=== PATIENT | male | born 1955 | race Caucasian/White ===

== ENCOUNTER 2016-07-03 13:31 | Emergency (ER) | payer OTHER, MEDICAID ==
--- NOTE | 2016-07-03 13:22 | EDPHY ---
H & P Constitutional: Initial Vital Signs Temperature (C) 37.1 C 07/03/16 13:31 Heart Rate 113 H 07/03/16 13:31 Respiratory Rate 16 07/03/16 13:31 Blood Pressure 140/91 H 07/03/16 13:31 O2 Sat (%) 93 07/03/16 13:31 O2 Delivery Mode Room Air Allergies/Adverse Reactions: No Known Allergies Allergy (Verified 07/03/16 13:44) Home Medications: Medication Instructions Recorded Unobtainable 0 mg PO DAILY 10/19/15 ARIPiprazole [Abilify 10 mg (*)] 10 mg PO DAILY #30 tab 11/21/15 ARIPiprazole [Abilify Maintena] 400 mg IM Q4 #1 suser.[email or web address] 11/21/15 Benztropine Mesylate [Cogentin] 1 mg PO BID #60 tab 11/21/15 Docusate Sodium [Colace 100 MG (*)] 100 mg PO BID #60 cap 11/21/15 Donepezil HCl [Aricept 5 MG (*)] 10 mg PO DAILY #30 tab 11/21/15 Lisinopril [Zestril 10 mg (*)] 10 mg PO DAILY #30 tab 11/21/15 Temazepam [Restoril 15 MG (*)] 15 mg PO HS PRN #30 cap 11/21/15 Trifluoperazine HCl [Stelazine 5MG 40 mg PO HS #60 tab 11/21/15 (*)] Medical Decision Making ED Course/Re-evaluation: CHIEF COMPLAINT: Psychiatric evaluation HISTORY OF PRESENT ILLNESS: A 61-year-old gentleman who is of unknown schizophrenic who is not making any sense whatsoever. He has been put on an M1 hold. He states that he was in the public bathroom helping wash dishes sees not making any sense and he is quite tangential. REVIEW OF SYSTEMS: A 10 point review of systems was performed and is negative with the exception of the elements mentioned in the history of present illness. Although should be taken with considerable skepticism as this patient is completely disorganized in his thoughts and speech PHYSICAL EXAM: General Appearance: Alert, well hydrated, appropriate, and non-toxic appearing. Head: Atraumatic without scalp tenderness or obvious injury Eyes: Pupils equal, round, reactive to light and accommodation, EOMI, no trauma , no injection. Ears: Clear bilaterally, no perforation, normal landmarks Nose: Atraumatic, no rhinorrhea, clear. Throat: There is no erythema or exudates, no lesions, normal tonsils, mucus membranes moist. Neck: Supple, 2+ carotid upstroke, nontender, no lymphadenopathy. Respiratory: No retractions, no distress, no wheezes, and no accessory muscle use. Lungs are clear to auscultation bilaterally. Cardiovascular: Regular rate and rhythm, no murmurs, rubs, or gallops. Bilateral carotid, radial, dorsalis pedis, and posterior tibial pulses intact. Good capillary refill all extremities. Gastrointestinal: Abdomen is soft, nontender, non-distended, no masses, no rebound, no guarding, no peritoneal signs. Musculoskeletal: Normal active ROM of all extremities, atraumatic. Neurological: Extra firm metal extremity movement a confusion is. Alert, appropriate, and interactive. The patient has normal DTRs and non-focal cranial nerves, motor, sensory, and cerebellar exam. Skin: No rashes, good turgor, no nodules on palpation. Past medical history: Schizophrenia Past surgical history: Patient will not answer Family history: The patient will not answer Social history: Patient will not answer DIFFERENTIAL DIAGNOSIS: The differential diagnosis for the patient's depression included but was not limited to functional and major depression, situational depression, medication side effect, drugs, and alcohol abuse. MEDICAL DECISION MAKING: Patient is in no acute distress and is hemodynamically stable. We are awaiting psychiatric team's evaluation. Patient has known history of psychiatric disorders and is here for evaluation. (Hamzah Guevara) 2242: patient signed over to me at 7:00 p.m. shift change. Patient has schizophrenia. Resting comfortably no acute distress. Pending placement. On M1 hold. 10 gentle. Patient signed over at 11:00 p.m. shift change to Dr. Alireza Coleman. (Demond Herrera) 2310 patient signed out to me from Dr. Herrera. Patient is schizophrenic with acute psychosis. He has been evaluated by mental health pharmacy data analyst and is awaiting placement. Patient has been placed on M1 hold. 0700 patient signed out to Dr. Austin pending placement. No issues of my care this patient overnight. (Alex Coleman) 0700: Patient signed out to me by Dr. Coleman at shift change. Mental health is looking for placement. I interviewed and examined this patient at 7:20 a.m.. At that time he was requesting a meal. He is mildly tachypneic and tells me that this is because he is hungry. His lungs are clear to auscultation. Heart has a regular rate and rhythm. He is walking about in the room. He is not agitated. His prescribed morning medications are being given to him. Awaiting placement. 1325: Patient has been accepted to [facility] under Lexy Luna NP. EMTALA completed. (Isha Austin) - Data Points Laboratory Results: Laboratory Results 07/03/16 14:15 07/03/16 14:15 Medications Given: Discontinued Medications Aripiprazole (Abilify) 10 mg PO DAILY [place] Stop: 12/31/16 08:59 Last Admin: 07/04/16 09:06 Dose: Not Given Benztropine Mesylate (Cogentin) 1 mg PO EDNOW ONE Stop: 07/03/16 19:32 Last Admin: 07/03/16 20:21 Dose: 1 mg Benztropine Mesylate (Cogentin) 1 mg PO EDNOW ONE Stop: 07/04/16 07:17 Last Admin: 07/04/16 09:02 Dose: 1 mg Donepezil HCl (Aricept) 5 mg PO HS [place] Stop: 12/30/16 20:59 Last Admin: 07/03/16 20:21 Dose: 5 mg Lisinopril (Zestril) 20 mg PO EDNOW ONE Stop: 07/04/16 07:17 Last Admin: 07/04/16 09:05 Dose: 20 mg Nicotine (Nicoderm Cq) 21 mg TD EDNOW ONE Stop: 07/03/16 17:26 Last Admin: 07/03/16 18:16 Dose: 21 mg Trifluoperazine HCl (Stelazine) 20 mg PO EDNOW ONE Stop: 07/03/16 19:28 Last Admin: 07/03/16 20:21 Dose: 20 mg Departure - Departure Disposition: Other Psych, Not [place] Clinical Impression: Schizophrenia, acute undifferentiated, Acute psychosis Condition: Fair Referrals: Patient,NotPresent [Unknown] - As per Instructions
[2016-07-03 14:30] LABS: % IMMATURE GRANULYOCYTES 0.2 % (0.0-1.1); ABSOLUTE IMMATURE GRANULOCYTES 0.02 10^3/uL (0.00-0.10); ADD DIFF? NO; ADD MORPH? NO; ADD SCAN? NO; ATYPICAL LYMPHOCYTE FLAG 10 (0-99); FRAGMENT RBC FLAG 0 (0-99); HEMATOCRIT 46.4 % (40.0-51.0); HEMOGLOBIN 15.7 g/dL (13.7-17.5); LEFT SHIFT FLG 0 (0-99); LIPEMIA HEMOLYSIS FLAG 90 (0-99); MEAN CELL HEMOGLOBIN 32.5 pg (27.9-34.1); MEAN CELL HEMOGLOBIN CONCENTR. 33.8 g/dL (32.4-36.7); MEAN CELL VOLUME 96.1 fL (81.5-99.8); MEAN PLATELET VOLUME 9.3 fL (8.7-11.7); PLATELET CLUMPS FLAG 0 (0-99); PLATELET COUNT 327 10^3/uL (150-400); RED BLOOD CELL COUNT 4.83 10^6/uL (4.40-6.38); RED CELL DISTRIBUTION WIDTH 11.9 % (11.5-15.2)
[2016-07-03 14:44] LABS: ANION GAP 12 mEq/L (8-16); CALCIUM 9.6 mg/dL (8.5-10.4); CARBON DIOXIDE 30 mEq/l (22-31); CHLORIDE 98 mEq/L (97-110); CREATININE 0.9 mg/dL (0.7-1.3); ETHANOL SERUM < 10 mg/dL (0-10); GLOMERULAR FILTRATION RATE > 60; GLUCOSE 90 mg/dL (70-100); POTASSIUM 4.2 mEq/L (3.5-5.2); SALICYLATE < 1.0 mg/dL (2.0-20.0); SODIUM 140 mEq/L (134-144)
[2016-07-03] MEDS ORDERED: NICOTINE 21 MG/24 HR PATCH TD ONE (17:25)
[2016-07-03] MEDS ORDERED: TRIFLUOPERAZINE HCL 5 MG TAB PO ONE (19:27)
[2016-07-03] MEDS ORDERED: BENZTROPINE MESYLATE 1 MG TAB PO ONE (19:31)
[2016-07-03] MEDS ORDERED: DONEPEZIL HCL 5 MG TAB PO SCH (21:00)
[2016-07-03 22:40] VITALS: RESP 16
[2016-07-04] MEDS ORDERED: BENZTROPINE MESYLATE 1 MG TAB PO ONE (07:16)
[2016-07-04] MEDS ORDERED: LISINOPRIL 20 MG TAB PO ONE (07:16)
[2016-07-04] MEDS ORDERED: ARIPiprazole 10 MG TAB PO SCH (09:00)
[2016-07-04 09:05] VITALS: PULSE 83; O2SAT 96
[2016-07-04 15:35] VITALS: BP 150/70; TEMP 97.7
== END 2016-07-04 15:30 ==
LOC: EDUNIT#
DX: F23 Brief psychotic disorder (principal)
CPT/HCPCS: 80305; G0480

== ENCOUNTER 2016-09-23 15:40 | Emergency (ER) | payer OTHER, MEDICAID ==
--- NOTE | 2016-09-23 15:55 | EDPHY ---
H & P Smoking Status: Current every day smoker Time Seen by Provider: 09/23/16 15:49 HPI/ROS: CHIEF COMPLAINT: "I've been poisoned" HISTORY OF PRESENT ILLNESS: The patient is a 61-year-old male with history of dementia and schizophrenia, brought in from [facility] with complaints of being poisoned. According to staff at [facility] the patient has not been compliant with his medications since August 20, 2016. Since refusal the patient has been hallucinating, he stay up all night talking to himself. When asked how the patient is feeling in the ED he states "the gravity doesn't work and I have been poisoned." Further history is unobtainable due to patient's schizophrenia and dementia. REVIEW OF SYSTEMS: ROS is limited due to patient's history of schizophrenia and dementia. (Manjula Claudio) Past Medical/Surgical History: Schizophrenia, Dementia (Manjula Claudio) Social History: Resides at [facility] (Manjula Claudio) Physical Exam: General Appearance: Alert, follows commands Eyes: Pupils equal and round, no conjunctival pallor or injection ENT, Mouth: Mucous membranes moist Neck: Normal inspection Respiratory: Lungs are clear to auscultation Cardiovascular: Regular rate and rhythm Gastrointestinal: Abdomen is soft and non-tender Neurological: A&O, nonfocal exam Skin: Warm and dry Extremities: Nontender, no pedal edema Psychiatric: Paranoid, flat affect (Manjula Claudio) Constitutional: Initial Vital Signs Temperature (C) 36.7 C 09/23/16 15:44 Heart Rate 95 09/23/16 15:44 Respiratory Rate 28 H 09/23/16 15:44 Blood Pressure 141/99 H 09/23/16 15:44 O2 Sat (%) 97 09/23/16 15:44 O2 Delivery Mode Room Air Allergies/Adverse Reactions: No Known Allergies Allergy (Verified 07/03/16 13:44) Home Medications: Medication Instructions Recorded Unobtainable 0 mg PO DAILY 10/19/15 Benztropine Mesylate [Cogentin] 1 mg PO BID #60 tab 11/21/15 Lisinopril [Zestril 10 mg (*)] 10 mg PO DAILY #30 tab 11/21/15 Trifluoperazine HCl [Stelazine 5MG 40 mg PO HS #60 tab 11/21/15 (*)] Acetaminophen [Tylenol 325mg (*)] 325 mg PO DAILY PRN 09/24/16 Divalproex [Depakote 125 MG (RX)] 125 mg PO 09/24/16 Medical Decision Making - Diagnostics Imaging: I viewed and interpreted images myself - Diagnostics Imaging Results: CXR: NAD (Manjula Claudio) ED Course/Re-evaluation: 0646AM: No acute events overnight. Patient sleeping. Patient here with dimensions schizophrenia. On M1 hold. Off medications. Paranoid and hallucinating. (Demond Herrera) Patient with history of dementia and schizophrenia, noncompliant with medications, presents with paranoia and hallucinations. Patient believes he has been poisoned. Plan to check lab work and urinalysis. Seroquel 200 mg orally given. Chest x-ray ordered. Behavioral Health received a phone call from the SPUDDER at [facility] who would like the patient to have a psych evaluation. Lab work is completely normal. Urinalysis and toxicology are negative. Patient is medically cleared and awaiting mental health evaluation. Patient was signed out to Dr. Phelps at the end of my shift. Patient is awaiting mental health evaluation and further placement. (Manjula Claudio) - Data Points Laboratory Results: Laboratory Results 09/23/16 16:10 09/23/16 16:10 Medications Given: Discontinued Medications Nicotine (Nicoderm Cq) 21 mg TD EDNOW ONE Stop: 09/23/16 18:54 Last Admin: 09/23/16 19:30 Dose: 21 mg Nicotine (Nicoderm Cq) 21 mg TD EDNOW ONE Stop: 09/24/16 08:52 Last Admin: 09/24/16 09:06 Dose: 21 mg Olanzapine (Olanzapine) 10 mg PO ONCE ONE Stop: 09/23/16 23:27 Last Admin: 09/23/16 23:36 Dose: 10 mg Quetiapine Fumarate (Seroquel) 200 mg PO EDNOW ONE Stop: 09/23/16 16:04 Last Admin: 09/23/16 16:30 Dose: 200 mg Departure - Departure Disposition: Other Psych, Not [place] Clinical Impression: Schizophrenia, Acute psychosis Condition: Good Referrals: Patient,NotPresent [Unknown] - As per Instructions Report Scribed for: Manjula Claudio Report Scribed by: Renae Fernandes Date of Report: 09/23/16 Time of Report: 15:53 Physician Review and Approval Statement: 09/23/16 15:53 Portions of this note were transcribed by a medical orderly. I personally performed the history, physical exam, and medical decision-making; and confirmed the accuracy of the information in the transcribed note. (Manjula Claudio)
[2016-09-23] MEDS ORDERED: QUEtiapine FUMARATE 25 MG TAB PO ONE (16:03)
[2016-09-23] MEDS ORDERED: QUEtiapine FUMARATE 200 MG TAB ONE (16:20)
[2016-09-23 16:23] LABS: % IMMATURE GRANULYOCYTES 0.4 % (0.0-1.1); ABSOLUTE IMMATURE GRANULOCYTES 0.04 10^3/uL (0.00-0.10); ADD DIFF? NO; ADD MORPH? NO; ADD SCAN? NO; ATYPICAL LYMPHOCYTE FLAG 30 (0-99); FRAGMENT RBC FLAG 0 (0-99); HEMATOCRIT 42.6 % (40.0-51.0); HEMOGLOBIN 14.6 g/dL (13.7-17.5); LEFT SHIFT FLG 0 (0-99); LIPEMIA HEMOLYSIS FLAG 90 (0-99); MEAN CELL HEMOGLOBIN 33.2 pg (27.9-34.1); MEAN CELL HEMOGLOBIN CONCENTR. 34.3 g/dL (32.4-36.7); MEAN CELL VOLUME 96.8 fL (81.5-99.8); MEAN PLATELET VOLUME 9.1 fL (8.7-11.7); PLATELET CLUMPS FLAG 0 (0-99); PLATELET COUNT 335 10^3/uL (150-400); RED CELL DISTRIBUTION WIDTH 12.1 % (11.5-15.2)
[2016-09-23 16:41] LABS: ANION GAP 12 mEq/L (8-16); CALCIUM 9.3 mg/dL (8.5-10.4); CARBON DIOXIDE 25 mEq/l (22-31); CHLORIDE 103 mEq/L (97-110); CREATININE 0.8 mg/dL (0.7-1.3); ETHANOL SERUM < 10 mg/dL (0-10); GLOMERULAR FILTRATION RATE > 60; GLUCOSE 100 mg/dL (70-100); SODIUM 140 mEq/L (134-144)
[2016-09-23 17:39] LABS: COLOR PALE YELLOW; LEUKOCYTE ESTERASE,URINE NEGATIVE (NEGATIVE); NITRITE,URINE NEGATIVE (NEGATIVE)
[2016-09-23 18:05] LABS: RBC,URINE NONE SEEN /hpf (0-3)
[2016-09-23] MEDS ORDERED: NICOTINE 21 MG/24 HR PATCH TD ONE (18:53)
[2016-09-23] MEDS ORDERED: OLANZapine 10 MG TAB PO ONE (23:26)
[2016-09-23] MEDS ORDERED: OLANZapine DISINTEGR 10 MG TAB ONE (23:28)
[2016-09-24] MEDS ORDERED: NICOTINE 21 MG/24 HR PATCH TD ONE (08:51)
--- NOTE | 2016-09-24 09:11 | CPEKG ---
Heart Rate: 91 RR Interval: 659 P-R Interval: 140 QRSD Interval: 78 QT Interval: 364 QTC Interval: 448 P Badger: 70 QRS Badger: 17 T Wave Badger: 56 EKG Severity - NORMAL ECG - EKG Impression: SINUS RHYTHM Electronically Signed By: Jatin Heard 25-Sep-2016 13:59:34
[2016-09-24 09:23] VITALS: RESP 16; TEMP 98.2
[2016-09-24 09:36] VITALS: BP 119/78; PULSE 91; O2SAT 95
== END 2016-09-24 10:38 ==
LOC: EDUNIT#
DX: F20.9 Schizophrenia, unspecified (principal); F17.200 Nicotine dependence, unspecified, uncomplicated
CPT/HCPCS: 80305; G0480

== ENCOUNTER 2016-11-02 12:43 | Inpatient (IN) | payer OTHER, MEDICAID ==
--- NOTE | 2016-11-02 15:01 | EDPHY ---
H & P Stated Complaint: psych - Personal History Current Tetanus Diphtheria and Acellular Pertussis (TDAP): Unsure - Medical/Surgical History Hx Asthma: No Hx Chronic Respiratory Disease: No Hx Diabetes: No Hx Cardiac Disease: No Hx Renal Disease: No Hx Cirrhosis: No Hx Alcoholism: No Hx HIV/AIDS: No Hx Splenectomy or Spleen Trauma: No Other PMH: TB schizoaffective disorder,Gallbladder removed, Ankle surgery. Pt reports gallbladder has not been removed, dementia, low vision, hearing loss, HTN, TBI - Social History Smoking Status: Current every day smoker Time Seen by Provider: 11/02/16 13:58 Constitutional: Initial Vital Signs Temperature (C) 37 C 11/02/16 13:22 Heart Rate 100 11/02/16 13:22 Respiratory Rate 16 11/02/16 13:22 Blood Pressure 143/98 H 11/02/16 13:22 O2 Sat (%) 96 11/02/16 13:22 O2 Delivery Mode Room Air O2 (L/minute) 94 Allergies/Adverse Reactions: No Known Allergies Allergy (Verified 07/03/16 13:44) Home Medications: Medication Instructions Recorded Lisinopril [Zestril 10 mg (*)] 10 mg PO DAILY #30 tab 11/21/15 Acetaminophen [Tylenol 325mg (*)] 650 mg PO Q4HRS PRN 11/05/16 Carbamide Peroxide [Debrox Ear 5 drop LEFTEAR BID 11/05/16 drops (*)] Herbals/Supplements -Info Only 1 each PO DAILY 11/05/16 LORazepam [Ativan (*)] 0.5 mg PO Q8HRS 11/05/16 Melatonin [Melatonin 3 MG (*)] 3 mg PO HS PRN 11/05/16 Medical Decision Making ED Course/Re-evaluation: CHIEF COMPLAINT: Psychiatric evaluation HISTORY OF PRESENT ILLNESS: This patient is a 61 year old male with history of dementia and schizophrenia brought in from [facility] for medication noncompliance. He has been evaluated before in this emergency department for similar issues. [facility] is requesting alternate placement for this patient as his medication is court- ordered but they are unable to force medication compliance. On evaluation today , the patient states he is "doing fine", and requests a nicotine patch as he is becoming faint. Further history is unobtainable due to patient's schizophrenia and dementia. REVIEW OF SYSTEMS: Limited due to patient's history of schizophrenia and dementia. PHYSICAL EXAM: General Appearance: Alert, well hydrated, appropriate, and non-toxic appearing. Head: Atraumatic without scalp tenderness or obvious injury Eyes: Pupils equal, round, reactive to light and accommodation, EOMI, no trauma , no injection. Ears: Clear bilaterally, no perforation, normal landmarks Nose: Atraumatic, no rhinorrhea, clear. Throat: There is no erythema or exudates, no lesions, normal tonsils, mucus membranes moist. Neck: Supple, nontender, no lymphadenopathy. Respiratory: No retractions, no distress, no wheezes, and no accessory muscle use. Lungs are clear to auscultation bilaterally. Cardiovascular: Regular rate and rhythm. Good capillary refill all extremities. Gastrointestinal: Abdomen is soft, nontender. Musculoskeletal: Normal active ROM of all extremities, atraumatic. Neurological: Alert, appropriate, and interactive. Nonfocal neuro exam. Skin: No rashes, good turgor, no nodules on palpation. Past medical history: Schizoaffective disorder, dementia, hearing loss, hypertension Past surgical history: Noncontributory Family history: Noncontributory Social history: Lives at [facility]. DIFFERENTIAL DIAGNOSIS: The differential diagnosis for the patient's depression included but was not limited to functional and major depression, situational depression, medication side effect, drugs, and alcohol abuse. MEDICAL DECISION MAKING: Patient is in no acute distress and is hemodynamically stable. We are awaiting psychiatric team's evaluation. Patient has known history of psychiatric disorders and is here for evaluation. (Hamzah Guevara) I took over care of this patient at 11:00 p.m.. The patient is on an M1 hold for schizoaffective disorder. He is to be admitted. Destination for admission pending at this time. 1:20 a.m., the patient is showing some escalating agitation with psychotic features. He will be given 10 mg of oral Zyprexa. He continues to await placement for psychiatric admission. 7 a.m., the patient's remaining emergency department course under my care has been uneventful. Patient still awaits psychiatric admission. Care turned over to Dr. Jorge Luis Phelps at this time. (Tabby Jarquin) 1500: The patient is admitted change of shift. The patient is awaiting placement. No new complaints. (Jorge Luis Phelps) 1500: The patient is signed out at change of shift by Dr. Phelps. I went personally evaluated the patient. He was waiting comfortably in his room. I rechecked the patient on numerous occasions while here. He intermittently became mildly agitated was easily calmed with answering his questions. 2300: The patient is signed out at change of shift to Dr. Coleman. (Tracy Celestin) Re-evaluation by me at 7:25 a.m.. Patient is stable. He asked for a glass of water. He is awaiting placement (Walker Qiu) 191: Patient has been accepted at [address] [place] [address]. Inpatient psychiatric hospitalization by Dr. Ramirez. EMTALA FILLED OUT. (Demond Herrera) Critical Care Time: 3:30 p.m. care transferred to Dr. Tracy Celestin, pending placement. (Jorge Luis Phelps) Other Provider: Patient signed out to me at 7am by Dr Coleman. The patient remained stable over the course of my shift, not requiring intervention. I spoke with Orlin from Mental Health multiple times and they are aware that the patient's M1 hold will this evening. Dr. Joseph from psychiatry is apparently coming to the ED to re-evaluate the patient. Patient signed out to Dr. Herrera pending mental health dispo. (Aiden Hernandez) Care Turn Over: 2300 care assumed by me from Dr. Celestin pending placement 0700 patient signed out to Dr. Qiu pending placement. No issues during my care overnight. 2200 11/04/16 care assumed by me from Dr. Phelps pending placement. 0700 patient signed out to Dr. Hernandez pending placement. No issues during my care overnight. (Alex Coleman) - Data Points Laboratory Results: Laboratory Results 11/02/16 15:05 11/02/16 15:05 Medications Given: Discontinued Medications Acetaminophen (Tylenol) 650 mg PO EDNOW ONE Stop: 11/02/16 20:13 Last Admin: 11/02/16 20:13 Dose: 650 mg Haloperidol (Haldol) 5 mg PO EDNOW ONE Stop: 11/04/16 22:52 Last Admin: 11/04/16 23:11 Dose: 5 mg Nicotine (Nicoderm Cq) 21 mg TD EDNOW ONE Stop: 11/02/16 22:04 Last Admin: 11/02/16 22:09 Dose: 21 mg Nicotine (Nicoderm Cq) 21 mg TD EDNOW ONE Stop: 11/03/16 23:04 Last Admin: 11/03/16 23:26 Dose: 21 mg Nicotine (Nicoderm Cq) 21 mg TD EDNOW ONE Stop: 11/04/16 23:01 Last Admin: 11/04/16 22:42 Dose: 21 mg Nicotine (Nicoderm Cq) 21 mg TD EDNOW ONE Stop: 11/05/16 17:48 Last Admin: 11/05/16 17:48 Dose: 21 mg Olanzapine (Zyprexa Zydis) 10 mg PO EDNOW ONE Stop: 11/03/16 01:21 Last Admin: 11/03/16 02:36 Dose: Not Given Olanzapine (Zyprexa Im Injection) 10 mg IM EDNOW ONE Stop: 11/03/16 01:40 Last Admin: 11/03/16 01:40 Dose: 10 mg Olanzapine (Zyprexa Zydis) 10 mg PO EDNOW ONE Stop: 11/04/16 22:33 Last Admin: 11/04/16 22:45 Dose: Not Given Departure - Departure Disposition: [facility] Clinical Impression: Schizoaffective disorder Qualifiers: Schizoaffective disorder type: bipolar Qualified Code(s): F25.0 - Schizoaffective disorder, bipolar type Condition: Good Referrals: SHEELA DYE [Primary Care Provider] - As per Instructions Report Scribed for: Hamzah Guevara Report Scribed by: pOal Todd Date of Report: 11/02/16 Time of Report: 17:03
[2016-11-02 15:12] LABS: % IMMATURE GRANULYOCYTES 0.3 % (0.0-1.1); ABSOLUTE IMMATURE GRANULOCYTES 0.03 10^3/uL (0.00-0.10); ADD DIFF? NO; ADD MORPH? NO; ADD SCAN? NO; ATYPICAL LYMPHOCYTE FLAG 0 (0-99); FRAGMENT RBC FLAG 0 (0-99); HEMATOCRIT 44.6 % (40.0-51.0); HEMOGLOBIN 15.3 g/dL (13.7-17.5); LEFT SHIFT FLG 0 (0-99); LIPEMIA HEMOLYSIS FLAG 90 (0-99); MEAN CELL HEMOGLOBIN 32.6 pg (27.9-34.1); MEAN CELL HEMOGLOBIN CONCENTR. 34.3 g/dL (32.4-36.7); MEAN CELL VOLUME 94.9 fL (81.5-99.8); MEAN PLATELET VOLUME 9.2 fL (8.7-11.7); PLATELET CLUMPS FLAG 0 (0-99); PLATELET COUNT 338 10^3/uL (150-400); RED CELL DISTRIBUTION WIDTH 11.8 % (11.5-15.2)
[2016-11-02 15:35] LABS: ANION GAP 13 mEq/L (8-16); CALCIUM 9.5 mg/dL (8.5-10.4); CARBON DIOXIDE 26 mEq/l (22-31); CHLORIDE 101 mEq/L (97-110); CREATININE 0.8 mg/dL (0.7-1.3); ETHANOL SERUM < 10 mg/dL (0-10); GLOMERULAR FILTRATION RATE > 60; GLUCOSE 84 mg/dL (70-100); POTASSIUM 3.9 mEq/L (3.5-5.2); SALICYLATE < 1.0 mg/dL (2.0-20.0); SODIUM 140 mEq/L (134-144)
[2016-11-02] MEDS ORDERED: ACETAMINOPHEN 325 MG TAB ONE (20:11)
[2016-11-02] MEDS ORDERED: ACETAMINOPHEN 325 MG TAB PO ONE (20:12)
[2016-11-02] MEDS ORDERED: NICOTINE 21 MG/24 HR PATCH TD ONE (22:03)
[2016-11-03] MEDS ORDERED: OLANZapine DISINTEGR 10 MG TAB PO ONE (01:20)
[2016-11-03] MEDS ORDERED: OLANZapine 10 MG/2 ML VIAL IM ONE ×2 (01:34→01:39)
--- NOTE | 2016-11-03 06:55 | CPEKG ---
Heart Rate: 68 RR Interval: 882 P-R Interval: 132 QRSD Interval: 80 QT Interval: 404 QTC Interval: 430 P Mauk: 62 QRS [place]k: 23 T Wave [place]: 54 EKG Severity - NORMAL ECG - EKG Impression: SINUS RHYTHM Electronically Signed By: Jorge Luis Phelps 03-Nov-2016 07:06:33
[2016-11-03] MEDS ORDERED: NICOTINE 21 MG/24 HR PATCH TD ONE (23:03)
[2016-11-04] MEDS ORDERED: OLANZapine DISINTEGR 10 MG TAB PO ONE (22:32)
[2016-11-04] MEDS ORDERED: HALOPERIDOL 5 MG TAB PO ONE (22:51)
[2016-11-04] MEDS ORDERED: NICOTINE 21 MG/24 HR PATCH TD ONE (23:00)
[2016-11-05] MEDS ORDERED: NICOTINE 21 MG/24 HR PATCH TD ONE ×2 (17:46→17:47)
[2016-11-05] MEDS ORDERED: MAGNESIUM HYDROXIDE 30 ML UDCUP PO PRN (22:46)
[2016-11-05] MEDS ORDERED: LORazepam 0.5 MG TAB PO PRN (22:46)
[2016-11-05] MEDS ORDERED: MAG HYDROX/AL HYDROX/SIMETH 30 ML UDCUP PO PRN (22:46)
[2016-11-05] MEDS ORDERED: OLANZapine 5 MG TAB PO PRN (22:48)
[2016-11-05] MEDS: DOCUSATE SODIUM 100 MG CAP PO SCH (22:58)
--- NOTE | 2016-11-06 07:18 | PDGENHP ---
History and Physical - Chief Complaint schizoaffective, not taking meds - History of Present Illness Pt transferred to ED from [facility] due to refusal of meds. He has been behaviorally controlled here. Seems to be at baseline. Denies hallucinations currently. He denies patel, vision changes, chest pain, SOB, abdominal symptoms or changes in bowel or bladder habits. He c/o ear wax, asks for drops. No other complaints. He is comfortable. History Information - Allergies/Home Medication List Allergies/Adverse Reactions: No Known Allergies Allergy (Verified 07/03/16 13:44) Home Medications: Acetaminophen [Tylenol 325mg (*)] 650 mg PO Q4HRS PRN 11/05/16 [Last Taken Unknown] Carbamide Peroxide [Debrox Ear drops (*)] 5 drop LEFTEAR BID 11/05/16 [Last Taken Unknown] Herbals/Supplements -Info Only 1 each PO DAILY 11/05/16 [Last Taken Unknown] LORazepam [Ativan (*)] 0.5 mg PO Q8HRS 11/05/16 [Last Taken Unknown] Melatonin [Melatonin 3 MG (*)] 3 mg PO HS PRN 11/05/16 [Last Taken Unknown] I have personally reviewed and updated: family history, medical history, social history, surgical history - Past Medical History hypertension Additional medical history: TBI, htn, hearing loss, dementia, tobacco abuse - Family History Positive for: non-pertinent - Social History Smoking Status: Current every day smoker Alcohol Use: None Drug Use: None Additional social history: Lives at [facility] Review of Systems ROS: 10pt was reviewed & negative except for what was stated in HPI & below Physical Exam Temp Pulse Resp BP Pulse Ox 36.6 C 84 14 141/91 H 95 11/06/16 06:00 11/06/16 06:00 11/06/16 06:00 11/06/16 06:00 11/06/16 06:00 Constitutional: no apparent distress Eyes: PERRL Ears, Nose, Mouth, Throat: moist mucous membranes Cardiovascular: regular rate and rhythym Respiratory: no respiratory distress, clear to auscultation Gastrointestinal: normoactive bowel sounds, soft, non-tender abdomen Skin: warm Musculoskeletal: full muscle strength Neurologic: AAOx3 Psychiatric: interacting appropriately Lab Data & Imaging Review 11/02/16 15:05 11/02/16 15:05 WBC 9.55 10^3/uL (3.80-9.50) H 11/02/16 15:05 RBC 4.70 10^6/uL (4.40-6.38) 11/02/16 15:05 Hgb 15.3 g/dL (13.7-17.5) 11/02/16 15:05 Hct 44.6 % (40.0-51.0) 11/02/16 15:05 MCV 94.9 fL (81.5-99.8) 11/02/16 15:05 MCH 32.6 pg (27.9-34.1) 11/02/16 15:05 MCHC 34.3 g/dL (32.4-36.7) 11/02/16 15:05 RDW 11.8 % (11.5-15.2) 11/02/16 15:05 Plt Count 338 10^3/uL (150-400) 11/02/16 15:05 MPV 9.2 fL (8.7-11.7) 11/02/16 15:05 Neut % (Auto) 65.2 % (39.3-74.2) 11/02/16 15:05 Lymph % (Auto) 23.0 % (15.0-45.0) 11/02/16 15:05 [place] % (Auto) 8.8 % (4.5-13.0) 11/02/16 15:05 Eos % (Auto) 1.9 % (0.6-7.6) 11/02/16 15:05 Baso % (Auto) 0.8 % (0.3-1.7) 11/02/16 15:05 Nucleat RBC Rel Count 0.0 % (0.0-0.2) 11/02/16 15:05 Absolute Neuts (auto) 6.22 10^3/uL (1.70-6.50) 11/02/16 15:05 Absolute Lymphs (auto) 2.20 10^3/uL (1.00-3.00) 11/02/16 15:05 Absolute Monos (auto) 0.84 10^3/uL (0.30-0.80) H 11/02/16 15:05 Absolute Eos (auto) 0.18 10^3/uL (0.03-0.40) 11/02/16 15:05 Absolute Basos (auto) 0.08 10^3/uL (0.02-0.10) 11/02/16 15:05 Absolute Nucleated RBC 0.00 10^3/uL (0-0.01) 11/02/16 15:05 Immature Gran % 0.3 % (0.0-1.1) 11/02/16 15:05 Immature Gran # 0.03 10^3/uL (0.00-0.10) 11/02/16 15:05 Sodium 140 mEq/L (134-144) 11/02/16 15:05 Potassium 3.9 mEq/L (3.5-5.2) 11/02/16 15:05 Chloride 101 mEq/L (97-110) 11/02/16 15:05 Carbon Dioxide 26 mEq/l (22-31) 11/02/16 15:05 Anion Gap 13 mEq/L (8-16) 11/02/16 15:05 BUN 11 mg/dL (7-23) 11/02/16 15:05 Creatinine 0.8 mg/dL (0.7-1.3) 11/02/16 15:05 Estimated GFR > 60 11/02/16 15:05 Glucose 84 mg/dL (70-100) 11/02/16 15:05 Calcium 9.5 mg/dL (8.5-10.4) 11/02/16 15:05 Salicylates < 1.0 mg/dL (2.0-20.0) L 11/02/16 15:05 Urine Opiates Screen NEGATIVE (NEGATIVE) 11/02/16 16:41 Acetaminophen < 10 mcg/mL (10-30) L 11/02/16 15:05 Urine Barbiturates NEGATIVE (NEGATIVE) 11/02/16 16:41 Ur Phencyclidine Scrn NEGATIVE (NEGATIVE) 11/02/16 16:41 Ur Amphetamine Screen NEGATIVE (NEGATIVE) 11/02/16 16:41 U Benzodiazepines Scrn NEGATIVE (NEGATIVE) 11/02/16 16:41 Urine Cocaine Screen NEGATIVE (NEGATIVE) 11/02/16 16:41 U Marijuana (THC) Screen NEGATIVE (NEGATIVE) 11/02/16 16:41 Ethyl Alcohol < 10 mg/dL (0-10) 11/02/16 15:05 Assessment & Plan Assessment: Schizoaffective disorder (Acute) - Pt admitted from [facility] due to difficulty with medication adherence. He is behaviorally controlled. -prn Zyprexa -further management per [facility] team Hypertension - BP 140/90 this am. -consider [id number] of lisinopril if persists elevated Dementia - stable Hearing loss - pt c/o ear wax which may cause worse symptoms -prn debrox Tobacco abuse - cont nicoderm TBI Full code Dispo - inpt behavioral health
[2016-11-06] MEDS: LISINOPRIL 10 MG TAB PO SCH (08:19)
[2016-11-06] MEDS: NICOTINE 21 MG/24 HR PATCH TD SCH (08:21)
[2016-11-06] MEDS: DOCUSATE SODIUM 100 MG CAP PO SCH ×2 (08:26→21:40)
--- NOTE | 2016-11-06 16:46 | BAPA ---
[f rep st] ADMISSION PSYCHIATRIC ASSESSMENT DATE OF SERVICE: 11/06/2016 CHIEF COMPLAINT: "They promised me I would have privacy, I am not going to talk to you." HISTORY OF PRESENT ILLNESS: The patient is a 61-year-old male with a history of chronic p aranoid schizophrenia. He also has a history of dementia. He has had numerous hospitalizations at our facility, all precipitated by medication noncompliance and psychotic decompensation. He has mos t recently been living at [facility] and had, by their report, not taken his prescribed medicatio ns for over a month. He has become more paranoid, irritable, and hostile, and had begun displaying some disorganized behaviors and was not following the facility rules, including smoking inside. He was eventually referred to the ED for evaluation, placed on an M1 hold due to grave disability, and admitted for further evaluation. The patient was last here from 10/18 to 11/21/2015. At that time, he was again noncompliant with his medicines though eventually did take them and was able to transf er to [facility]. He was sent to the ER on 07/03 and 09/23/2016 from [facility], both times d ue to increasing delusions and noncompliance with medications. Both times, he was returned to [facility]. Today, patient refuses to speak with me. He is quite hostile and paranoid, states that he was told he did not have to talk to the doctor. I know him fairly well from previous admissions and told him I was available to answer any questions or if he needed anything and he told me to go away in a ad y hostile manner. PAST PSYCHIATRIC HISTORY: The patient has a greater than 30-year history of schizophrenia. 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 He had a history of medication noncompliance and recurrence of his psychosis and this seemed to accumulate f or him to the point that his overall functioning had deteriorated and he could no longer keep his lexie b. He was placed in [facility] about a year ago. He sees doctors at [facility]. ALLERGIES: No known medical allergies. CURRENT MEDICATIONS: Lisinopril 10 mg daily, melatonin 3 mg at bedtime. It is unclear what the misty venegas's last psychotropic medicines were. He was discharged from this facility in November 2015 on Abilify 10 mg, Cogentin 1 mg twice daily, Aricept 10 mg daily, temazepam 15 mg at bedtime, and Fidelina zine 40 mg at bedtime. 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 SOCIAL HISTORY: Patient is unmarried, has no dependents or children. He has 1 brother who lives in [place]. He receives social security disability income. He previously worked at the [employer]. He has very few local supports. The patient has no significant substance abuse history. ADMISSION LABORATORY DATA: CBC is normal. Serum chemistries are normal. Urine drug screen is nega tive for all substances. MENTAL STATUS EXAMINATION: Reveals a disheveled, malodorous male. He is hostile and verb ally threatening to me when I approach him. His affect is otherwise irritable and intense. He disp lays a seemingly disorganized thought process. He is, however, able to express himself to the exten t that he does not want to talk to me. His thought content reveals likely paranoia. He will not an swer questions in regard to other aspects of his thought content, including perceptual disturbances. It is unclear what his orientation is as he is uncooperative with that as well. There does not ap pear to be any delirium. The patient does not answer questions in regard to suicide, homicide, or v iolent ideations. IMPRESSION: Schizophrenia, paranoid type, chronic with acute exacerbation. Medication noncomplianc e. Chronic illness. Recurrent illness. Lack of natural supports. The patient is a 61-year-old male, well-known to us from previous treatments. He is curre ntly quite psychotic, irritable, hostile, and paranoid, which is typical of him when he is decompens ated. When he is taking his medicines, he is very pleasant and cooperative and I do not know of him as having ever been a risk for aggression. PLAN: 1. Admit to the [facility] unit on either an M1 hold or a continuation or t ransfer of his certification. It is unclear to me whether he is on a certification at this time. T LC report references a certification with court order of medications, though he was also recently ho spitalized at [facility] where it was said that they did not have a certification. Will attempt t o clarify this with [facility]. 2. Will restart medications as we know them with at least the Abilify for now and attempt to obtain a current medication regimen from [facility]. 3. Will engage patient in individual, group, and milieu psychotherapies and attempt to establish a therapeutic alliance with him and in the meantime provide at least assault awareness. ESTIMATED LENGTH OF STAY: 10-14 days. /[id number]/MODL
[2016-11-07] MEDS ORDERED: LORazepam 2 MG/ML INJ ONE ×2 (03:11→21:27)
[2016-11-07] MEDS ORDERED: HALOPERIDOL LACT 5 MG/ML INJ ONE (03:13)
[2016-11-07] MEDS ORDERED: HALOPERIDOL LACT 5 MG/ML INJ IM ONE (04:30)
[2016-11-07] MEDS ORDERED: LORazepam 2 MG/ML INJ IM ONE (04:30)
[2016-11-07] MEDS: NICOTINE 21 MG/24 HR PATCH TD SCH (09:42)
[2016-11-07] MEDS: LISINOPRIL 10 MG TAB PO SCH (09:43)
[2016-11-07] MEDS: DOCUSATE SODIUM 100 MG CAP PO SCH ×2 (09:47→21:42)
[2016-11-07] MEDS ORDERED: BENZTROPINE MESYLATE 1 MG TAB PO PRN (13:16)
[2016-11-07] MEDS ORDERED: LORazepam 0.5 MG TAB PO PRN (13:20)
[2016-11-07] MEDS ORDERED: MELATONIN 3 MG TAB PO PRN (13:21)
--- NOTE | 2016-11-07 13:26 | SOAPPROG ---
SOAP Progress Note Assessment/Plan: Assessment: 11/07/16 13:22 Plan: 1. Patient was combative with staff in survey associate on 11/07/16. He was yelling , screaming, punched door and swung at staff. He was given IM Haldol 5mg/IM Ativan 2mg/IM Benadryl 50mg one time. He has been placed on E-meds Day #1 today. Haldol 10mg BID PO/IM, Ativan 2mg BID PO/IM and Cogentin 1mg BID. 2. According to Dr. Ramirez's note, patient is reportedly on court ordered medications. Will need to contact P to get a copy of the LTC and court order for involuntary meds. 3. If he is on LTC already, there is no need to place him on STC when his M1 hold expires. But will need to verify there is an active LTC. Subjective: Met with patient and discussed with staff. Patient has been sundowning the past 2 nights since admission. Staff called this MD about 3am this morning to report patient had not slept all night and was up in his room yelling and screaming. At one point, patient became quite hostile and combative. He punched his door and moved toward staff and swung his arm like he was going to throw a punch. E- meds were ordered and he was put in seclusion where he slept for approx. 5 hrs in unlocked seclusion. This AM, he was angry and paranoid when MD attempted to interview him. He said, "the watchman from the police station was here last night and he's going to get fired." After that, patient was not making much sense and his thoughts were illogical. He has not exhibited any aggressive or agitated behavior for the rest of the day. Objective: Vital Signs Temp Pulse Resp BP Pulse Ox 36.6 C 84 14 111/75 95 11/06/16 06:00 11/06/16 06:00 11/06/16 06:00 11/07/16 09:43 11/06/16 06:00 MSE: Bearded, unkempt, dishevelled, wearing scrubs, spilled glass of water on floor. Affect: Irritable, Labile Mood: Angry TP: Delusional, nonsensical, illogical TC: Paranoid, delusional, denies AH/VH, no SI/HI Insight/Judgment: Impaired - Time Spent With Patient Time Spent With Patient: 15" - Pending Discharge Pending Discharge Within 24 Hours: No ICD10 Worksheet Patient Problems: Problems Problem Status Onset Dementia Acute Schizophrenia, paranoid, chronic Acute Hyponatremia Acute - ICD10 Problem Qualifiers (1) Dementia Qualifiers: Dementia type: unspecified type Alzheimer's disease onset: A Dementia behavioral disturbance: with behavioral disturbance Qualified Code(s): F03.91 - Unspecified dementia with behavioral disturbance (2) Schizophrenia, paranoid, chronic
[2016-11-07] MEDS ORDERED: HALOPERIDOL 10 MG TAB PO SCH (21:00)
[2016-11-07] MEDS: HALOPERIDOL LACT 5 MG/ML INJ IM PRN (21:42)
[2016-11-07] MEDS: HALOPERIDOL 5 MG TAB PO SCH (21:43)
[2016-11-07] MEDS: LORazepam 1 MG TAB PO SCH (21:43)
[2016-11-08] MEDS: NICOTINE 21 MG/24 HR PATCH TD SCH (08:40)
[2016-11-08] MEDS: LORazepam 1 MG TAB PO SCH ×2 (08:41→21:34)
[2016-11-08] MEDS: LISINOPRIL 10 MG TAB PO SCH (08:41)
[2016-11-08] MEDS: DOCUSATE SODIUM 100 MG CAP PO SCH ×2 (10:27→21:32)
[2016-11-08] MEDS: HALOPERIDOL LACT 5 MG/ML INJ IM PRN (11:31)
[2016-11-08] MEDS: HALOPERIDOL 5 MG TAB PO SCH ×2 (11:32→21:33)
--- NOTE | 2016-11-08 12:52 | SOAPPROG ---
SOAP Progress Note Assessment/Plan: Assessment: 11/07/16 13:22 Plan: 1. Patient was combative with staff in early childhood education instructor on 11/07/16. He was yelling , screaming, punched door and swung at staff. He was given IM Haldol 5mg/IM Ativan 2mg/IM Benadryl 50mg one time. He has been placed on E-meds Day #1 today. Haldol 10mg BID PO/IM, Ativan 2mg BID PO/IM and Cogentin 1mg BID. 2. According to Dr. Ramirez's note, patient is reportedly on court ordered medications. Will need to contact P to get a copy of the LTC and court order for involuntary meds. 3. If he is on LTC already, there is no need to place him on STC when his M1 hold expires. But will need to verify there is an active LTC. 11/08/16 12:48 Plan: 1. E-med Day #2 2. Patient has been clearer, less delusional and more cooperative since starting e-meds. 3. Will place on STC, but still waiting for LTC and court order for involuntary meds. Supposedly P has these documents and can transfer them over. CC to verify on Wednesday. Subjective: Met with patient and discussed with staff. He refused his PO Haldol this AM, stated he didn't like taking this medication b/c it gave him "a headache." He denies any other SE's or complaints. Staff report he slept 13 hrs last night, which is significant change since he was not sleeping last several nights and had been up screaming and yelling. That has stopped once he started receiving Haldol. He is less paranoid and delusional, but still extremely disorganized. Patient woke up for breakfast and attended group this AM, was much calmer, more pleasant and appropriately engaged with staff and peers. Told CC, Rodrigo, yesterday that he had a voice, named Garland, who carried on conversation in his head. Patient wanted Rodrigo to transcribe what Garland was telling him. Patient does not report Garland talking to him today. Objective: Vital Signs Temp Pulse Resp BP Pulse Ox 36.6 C 77 14 121/79 H 93 11/08/16 06:34 11/08/16 06:34 11/08/16 06:34 11/08/16 08:41 11/08/16 06:34 MSE: Lying in bed, refusing PO Haldol. Affect: Irritable about getting shot, but otherwise more cooperative and euthymic Mood: "OK" TP: Tangential, disorganized, less illogical TC: Paranoid delusions, claimed AH yesterday, but denies today, denies any SI/HI Insight/Judgment: Impaired - Time Spent With Patient Time Spent With Patient: 20" - Pending Discharge Pending Discharge Within 24 Hours: No ICD10 Worksheet Patient Problems: Problems Problem Status Onset Dementia Acute Schizophrenia, paranoid, chronic Acute Hyponatremia Acute - ICD10 Problem Qualifiers (1) Dementia Qualifiers: Dementia type: unspecified type Alzheimer's disease onset: A Dementia behavioral disturbance: with behavioral disturbance Qualified Code(s): F03.91 - Unspecified dementia with behavioral disturbance (2) Schizophrenia, paranoid, chronic
[2016-11-08] MEDS ORDERED: LORazepam 2 MG/ML INJ IM PRN (13:19)
[2016-11-08] MEDS ORDERED: HALOPERIDOL 10 MG TAB PO SCH (21:00)
[2016-11-09] MEDS: LORazepam 1 MG TAB PO SCH ×2 (08:24→21:06)
[2016-11-09] MEDS: HALOPERIDOL 5 MG TAB PO SCH ×2 (08:24→21:04)
[2016-11-09] MEDS: LISINOPRIL 10 MG TAB PO SCH (08:25)
[2016-11-09] MEDS ORDERED: HALOPERIDOL LACT 5 MG/ML INJ ONE (08:37)
[2016-11-09] MEDS: DOCUSATE SODIUM 100 MG CAP PO SCH ×2 (09:03→21:04)
[2016-11-09] MEDS: HALOPERIDOL LACT 5 MG/ML INJ IM PRN ×2 (09:27→21:04)
[2016-11-09] MEDS: NICOTINE 21 MG/24 HR PATCH TD SCH (10:00)
--- NOTE | 2016-11-09 11:45 | BLETTER ---
November 09, 2016 Honorable Medical Laboratory Assistant [facility] [place], [place] RE: Re: Petition for Court-Ordered Medications for Michael Jones (1955 ) Dear Medical Laboratory Assistant: I am writing this letter in support of the petition for court-ordered medications for Michael Jones. Mr. Jones has schizophrenia of the paranoid subtype. Mr. Jones is currently hospitalized at [facility]. He was admitted on a 72-hour mental health hold because of dangerousness and grave disability. A short-term certification was taken out when the 72-hour mental health hold . Mr. Jones has a long history of paranoid schizophrenia. He has been a patient of the [facility] for 35 years. When on medications, Mr. Jones does reasonably well and has been able to live in the community. Complicating his schizophrenia, he has also developed significant cognitive problems. He appears to have an early dementia with a decline of memory and a decline of higher executive functioning. He has been living at [facility] recently, but stopped taking his medications. He became aggressive at [facility] and was transferred to our emergency room, evaluated and admitted to the inpatient psychiatric unit. On our inpatient psychiatric unit, he has remained at times nonsensical, unable to hold a basic conversation. He clearly cannot meet his basic needs for food, clothing, and usp. In addition, he becomes rapidly aggressive, and has punched at doors and threatened to hit staff members on the psychiatric unit. In my professional opinion, Mr. Jones suffers from a significant mental illness which greatly impairs his judgment regarding his treatment and the use of medications. I believe he is not competent to participate in his treatment decisions. He has a history of poor compliance with medication regimens, resulting in exacerbation of his mental illness, requiring multiple hospitalizations. During his current treatment, less intrusive means of maintaining Mr. Jones have been unsuccessful. I am, therefore, petitioning the court for the following involuntary medications and request an authorization to perform such blood tests as are necessary to monitor his treatment. 1. An antipsychotic medication such as Stelazine, Haldol, Prolixin, Clozaril, Risperdal, Invega, Zyprexa, Seroquel, Geodon, Latuda, or Abilify, in all forms including long-acting injections. Benefits of these medications include decrease in delusional thoughts and hallucinations, and improving thought organization, impulse control, and judgment. 2. Group of anti-side effect medications such as Cogentin, Artane, Benadryl, or Inderal to treat possible side effects of the antipsychotics. 3. A benzodiazepine, including Ativan and Klonopin in all forms. Benefits include decrease in agitation and improving sleep. 4. A mood stabilization medication such as lithium, Depakote, Tegretol, Lamictal , Trileptal, Neurontin, or Topamax. Benefits include mood stabilization, improved impulse control, decreased self-destructive behaviors, and improved judgment. All medications have been or will be discussed with Mr. Jones, including benefits and potential side effects. Mr. Jones has been offered voluntary medications, and he continues to refuse voluntary medications. He has been notified of his rights, including his right to a court hearing with legal records manager and his right to third green party notification. Respectfully Yours, CARIE
--- NOTE | 2016-11-09 12:44 | SOAPPROG ---
SOAP Progress Note Assessment/Plan: Assessment: Schizophrenia, paranoid. Currently on Haldol by EMeds I will renew Emergency meds today as Mr. Jones remains irritable and dangerous and lacks insight and judgment. Cognitive Decline Possible dementing illness. Possible progression of negative symptoms of Schizophrenia. Plan: Renew E-Meds day #3: Haldol 10 mg BID. lorazepam 2 mg BID. COM Letter done. Trying to contact [facility] and learn what has worked in outpatient setting. 11/09/16 12:47 Subjective: 61 yo m "He made a mistake." "There's a man looking for me, his name is Garland." Pt requests something for excess earwax. He already has an order and has received medication. Paranoia present. Shows significant flight of ideas, and can not answer questions reasonably. Tells me he doesn't do well on Stelazine. Last hospital stay here appears to have been October to November 2015. At discharge he was on Stelazine 40 mg with plan to cross-taper to Abilify. I have left a VM with Crow Jeffries MD, who we believe is his outpatient Psychiatrist at [facility]. Objective: Vital Signs Temp Pulse Resp BP Pulse Ox 36.6 C 77 14 121/79 H 93 11/08/16 06:34 11/08/16 06:34 11/08/16 06:34 11/08/16 08:41 11/08/16 06:34 Medications Generic Name Dose Route Start Last Admin Trade Name Frankq PRN Reason Stop Dose Admin Nicotine 21 mg 11/06/16 09:00 11/09/16 10:00 Nicoderm Cq TD 05/05/17 08:59 21 mg DAILY CHESTER Lisinopril 10 mg 11/06/16 09:00 11/09/16 08:25 Zestril PO 05/05/17 08:59 10 mg DAILY CHESTER Docusate Sodium 100 mg 11/05/16 23:00 11/09/16 09:03 Colace PO 05/04/17 22:59 Not Given BID CHESTER Haloperidol 10 mg 11/09/16 21:00 Haldol PO 05/08/17 20:59 BID CHESTER Lorazepam 2 mg 11/08/16 21:00 11/09/16 08:24 Ativan PO 11/09/16 13:20 2 mg BID CHESTER MSE Lying in bed. Disheveled with full jones and poorly groomed hair. Mumbles and difficult to understand. Disjointed, illogical sentences with paranoia. minimally cooperative. Lacks insight. Lacks judgment. ICD10 Worksheet Patient Problems: Problems Problem Status Onset Dementia Acute Schizophrenia, paranoid, chronic Acute Hyponatremia Acute
[2016-11-09] MEDS ORDERED: LORazepam 2 MG/ML INJ IM PRN (15:13)
[2016-11-09] MEDS ORDERED: HALOPERIDOL 10 MG TAB PO SCH (21:00)
[2016-11-10] MEDS: CARBAMIDE PEROXIDE 15 ML BOTTLE EACHEAR PRN ×2 (09:25→15:45)
[2016-11-10] MEDS: NICOTINE 21 MG/24 HR PATCH TD SCH (09:26)
[2016-11-10] MEDS: DOCUSATE SODIUM 100 MG CAP PO SCH ×3 (09:27→21:13)
[2016-11-10] MEDS: LORazepam 1 MG TAB PO SCH ×3 (09:27→14:58)
[2016-11-10] MEDS: LISINOPRIL 10 MG TAB PO SCH (09:27)
[2016-11-10] MEDS: HALOPERIDOL 5 MG TAB PO SCH ×3 (09:27→21:13)
--- NOTE | 2016-11-10 10:58 | SOAPPROG ---
SOAP Progress Note Assessment/Plan: Assessment: Schizophrenia, paranoid. Currently on Haldol by EMeds I will renew Emergency meds today as Mr. Jones remains irritable and dangerous and lacks insight and judgment. I have done a petition for [facility]. Information from [facility] is that Mr. Jones has been on trifluoperazine 40 mg at HS , benztropine and Aricept. This is a high dose of a high potency antipsychotic. We will continue haloperidol at this time. We have IM short and long acting available, and with more time we anticipate good results. Will restart benztropine as a prn for now. Cognitive Decline Possible dementing illness. Possible progression of negative symptoms of Schizophrenia. Will restart Aricept Plan: Renew E-Meds day #3: Haldol 10 mg BID. lorazepam 1 mg BID. Add Aricept 5 mg HS Add benztropine 1 mg BID prn EPS COM Letter done. 11/10/16 11:03 Subjective: "For what?" Mr. Jones declines interview with me this morning. He slept well, 8.5 hours last night. He took a shower this AM. He is interacting with the nursing staff reasonably well, but not interacting with me today. Information from [facility] suggests Meds have been: Stelazine 40 mg at HS benztropine 1 mg BID Aricept 5 mg HS Objective: Vital Signs Temp Pulse Resp BP Pulse Ox 36.9 C 104 H 14 129/81 H 96 11/10/16 06:00 11/10/16 06:00 11/10/16 06:00 11/10/16 06:00 11/10/16 06:00 Medications Generic Name Dose Route Start Last Admin Trade Name Freq PRN Reason Stop Dose Admin Haloperidol 10 mg 11/09/16 21:00 11/10/16 09:27 Haldol PO 05/08/17 20:59 10 mg BID CHESTER Lisinopril 10 mg 11/06/16 09:00 11/10/16 09:27 Zestril PO 05/05/17 08:59 10 mg DAILY CHESTER Lorazepam 2 mg 11/09/16 21:00 11/10/16 09:27 Ativan PO 11/10/16 15:14 2 mg BID CHESTER Nicotine 21 mg 11/06/16 09:00 11/10/16 09:26 Nicoderm Cq TD 05/05/17 08:59 21 mg DAILY CHESTER MSE Awake, alert, uncooperative with me. [place], has showered today. Paucity of speech with me, but interacting with nursing staff, talking with them more, and more goal directed, requests more appropriate to needs of clothing and food. Continues to have paranoia about "Garland" Lacks insight, lacks judgment EPS present with sinuous movements of hands and legs. ICD10 Worksheet Patient Problems: Problems Problem Status Onset Dementia Acute Schizophrenia, paranoid, chronic Acute Hyponatremia Acute
[2016-11-10] MEDS ORDERED: HALOPERIDOL LACT 5 MG/ML INJ IM PRN (11:10)
[2016-11-10] MEDS ORDERED: LORazepam 2 MG/ML INJ IM PRN ×2 (11:10→11:14)
[2016-11-10] MEDS ORDERED: BENZTROPINE MESYLATE 1 MG TAB PO PRN ×2 (12:04→13:58)
[2016-11-10] MEDS ORDERED: BENZTROPINE MESYLATE 2 MG/2 ML INJ IM PRN (13:58)
[2016-11-10] MEDS ORDERED: DONEPEZIL HCL 5 MG TAB PO SCH (21:00)
[2016-11-10] MEDS ORDERED: HALOPERIDOL 10 MG TAB PO SCH (21:00)
[2016-11-10] MEDS ORDERED: LORazepam 1 MG TAB PO SCH (21:00)
[2016-11-11] MEDS: NICOTINE 21 MG/24 HR PATCH TD SCH (07:40)
[2016-11-11] MEDS: LISINOPRIL 10 MG TAB PO SCH (07:40)
--- NOTE | 2016-11-11 10:47 | SOAPPROG ---
SOAP Progress Note Assessment/Plan: Assessment: Schizophrenia, paranoid. Currently on Haldol by EMeds I will allow the Emergency medications to lapse today and continue oral medications. Mr. Jones appears to be responding to haloperidol. He is more conversant, and more comprehensible. but remains irritable and angry. He lacks any insight into his mental illness. Cognitive Decline Possible dementing illness. Possible progression of negative symptoms of Schizophrenia. Will restart Aricept Tardive Dyskinesia Scheduled cogentin, consider changing to prn. Plan: Allow E-Meds to and order haldol 10 mg BID, lorazepam 1 mg BID, and cogentin 1 mg BID (prn EPS) Work on clarifying outpatient placement. STC and COM Letter done. P can hold STC and COM in outpatient setting. 11/11/16 10:49 Subjective: "Nothing." "Goodbye." "I don't need it." "You're not a reality." Mr. Jones initially denies that he has a mental illness. Then when I try to discuss his Schizophrenia he tells me he has "Schizoaffective." He then goes on to reiterate that he does not need any medication. He took his haloperidol by mouth. We will try oral medications for the next 24 hours. Objective: Vital Signs Temp Pulse Resp BP Pulse Ox 36.8 C 67 16 122/73 H 96 11/11/16 06:00 11/11/16 06:00 11/11/16 06:00 11/11/16 06:00 11/11/16 06:00 Medications Generic Name Dose Route Start Last Admin Trade Name Frankq PRN Reason Stop Dose Admin Docusate Sodium 100 mg 11/05/16 23:00 11/10/16 21:13 Colace PO 05/04/17 22:59 Not Given BID CHESTER Haloperidol 10 mg 11/10/16 21:00 11/10/16 21:13 Haldol PO 05/09/17 20:59 Not Given BID CHESTER Lisinopril 10 mg 11/06/16 09:00 11/11/16 07:40 Zestril PO 05/05/17 08:59 10 mg DAILY CHESTER Lorazepam 1 mg 11/10/16 21:00 11/10/16 14:45 Ativan PO 11/11/16 11:12 1 mg BID CHESTER Nicotine 21 mg 11/06/16 09:00 11/11/16 07:40 Nicoderm Cq TD 05/05/17 08:59 21 mg DAILY CHESTER MSE Awake, alert, poor grooming uncooperative and unpleasant with me Denies any need for medication, showing lack of insight and judgment. Irritable and angry with me today. Slept 7.5 hours. ICD10 Worksheet Patient Problems: Problems Problem Status Onset Dementia Acute Schizophrenia, paranoid, chronic Acute Hyponatremia Acute
[2016-11-11] MEDS: DOCUSATE SODIUM 100 MG CAP PO SCH ×2 (12:02→21:12)
[2016-11-11] MEDS: NICOTINE POLACRILEX 2 MG GUM B PRN (15:29)
[2016-11-11] MEDS: HALOPERIDOL 5 MG TAB PO SCH ×2 (15:36→20:05)
[2016-11-11] MEDS: LORazepam 1 MG TAB PO SCH (23:54)
[2016-11-12] MEDS: LISINOPRIL 10 MG TAB PO SCH (09:20)
[2016-11-12] MEDS: NICOTINE 21 MG/24 HR PATCH TD SCH (09:21)
[2016-11-12] MEDS: CARBAMIDE PEROXIDE 15 ML BOTTLE EACHEAR PRN (09:25)
[2016-11-12] MEDS ORDERED: LORazepam 1 MG TAB PO PRN (10:44)
[2016-11-12] MEDS: HALOPERIDOL 5 MG TAB PO SCH ×2 (10:51→21:18)
[2016-11-12] MEDS: DOCUSATE SODIUM 100 MG CAP PO SCH ×2 (10:51→21:18)
[2016-11-12] MEDS: BENZTROPINE MESYLATE 1 MG TAB PO SCH ×2 (11:02→21:18)
--- NOTE | 2016-11-12 15:15 | SOAPPROG ---
SOAP Progress Note Assessment/Plan: Assessment: Schizophrenia, paranoid. I will allow the Emergency medications to lapse today and continue oral medications. Mr. Jones appears to be responding to haloperidol. He is more conversant, and more comprehensible. but remains irritable and angry. He lacks any insight into his mental illness. COM letter done, court date pending. We will resume emergency meds if irritability reappears. Cognitive Decline Possible dementing illness. Possible progression of negative symptoms of Schizophrenia. Will restart Aricept Tardive Dyskinesia Scheduled cogentin, consider changing to prn. Placement/Disposition This morning we learned that [facility] will take Mr. Jones back as long as he is on medications. Our current plan is to get him on haloperidol monthly injections. Plan: Continue haloperidol 10 mg BID benztropine 1 mg BID prn EPS lorazepam 1 mg Q4 hours prn anxiety/agitation/sleep STC and COM Letter done. [facility] can hold STC and COM in outpatient setting. 11/12/16 15:12 Subjective: "You can go." Declines any meaningful interaction with me today. Objective: Vital Signs Temp Pulse Resp BP Pulse Ox 36.8 C 95 14 146/93 H 93 11/12/16 06:00 11/12/16 06:00 11/12/16 06:00 11/12/16 09:20 11/12/16 06:00 MSE Awake, alert, casually dressed, grooming poor with disheveled hair. Restricted range of affect. Declines to describe mood. Paucity of spontaneous thoughts. Lacks insight and judgment ICD10 Worksheet Patient Problems: Problems Problem Status Onset Dementia Acute Schizophrenia, paranoid, chronic Acute Hyponatremia Acute
[2016-11-13] MEDS: LISINOPRIL 10 MG TAB PO SCH (09:50)
[2016-11-13] MEDS: NICOTINE 21 MG/24 HR PATCH TD SCH (09:51)
[2016-11-13] MEDS: CARBAMIDE PEROXIDE 15 ML BOTTLE EACHEAR PRN (10:33)
[2016-11-13] MEDS: HALOPERIDOL 5 MG TAB PO SCH (12:10)
[2016-11-13] MEDS: DOCUSATE SODIUM 100 MG CAP PO SCH (12:10)
[2016-11-13] MEDS: BENZTROPINE MESYLATE 1 MG TAB PO SCH (12:10)
--- NOTE | 2016-11-13 13:28 | SOAPPROG ---
SOAP Progress Note Assessment/Plan: Assessment: Schizophrenia, paranoid. Irritable and uncooperative today. Will restart E-Meds. Cognitive Decline Possible dementing illness. Possible progression of negative symptoms of Schizophrenia. Will restart Aricept when mental state more stable. Tardive Dyskinesia PRN benztropine. Placement/Disposition [facility] will take Mr. Jones back as long as he is on medications. Our current plan is to get him on haloperidol monthly injections. Plan: Restart haloperidol 10 mg HS benztropine 1 mg BID prn EPS lorazepam 1 mg Q4 hours prn anxiety/agitation/sleep STC and COM Letter done. [facility] can hold STC and COM in outpatient setting. 11/13/16 13:28 Subjective: "I don't want to hear it." "The gravity has grabbed me so hard." Pt declines to interact with me today. He has been refusing medications, and refuses to discuss this with me today. He has been staying in his room more today. He talks about "gravity" being more than normal and weighing him down. For this reason he needs to be in his room and in his bed. Objective: Vital Signs Temp Pulse Resp BP Pulse Ox 36.6 C 91 14 132/95 H 93 11/13/16 06:00 11/13/16 06:00 11/13/16 06:00 11/13/16 09:50 11/13/16 06:00 Medications Generic Name Dose Route Start Last Admin Trade Name Freq PRN Reason Stop Dose Admin Benztropine Mesylate 1 mg 11/12/16 10:45 11/13/16 12:10 Cogentin PO 05/11/17 10:44 Not Given BID [place] Docusate Sodium 100 mg 11/05/16 23:00 11/13/16 12:10 Colace PO 05/04/17 22:59 Not Given BID [place] Haloperidol 10 mg 11/11/16 21:00 11/13/16 12:10 Haldol PO 05/10/17 20:59 Not Given BID [place] Lisinopril 10 mg 11/06/16 09:00 11/13/16 09:50 Zestril PO 05/05/17 08:59 10 mg DAILY [place] Nicotine 21 mg 11/06/16 09:00 11/13/16 09:51 Nicoderm Cq TD 05/05/17 08:59 21 mg DAILY [place] MSE Awake, alert when I go in to see him but lies down and turns away from me in bed during the interview. Speech slow in rate but loud and his speech comes out in angry bursts. Thought processes disorganized and tangential. Thought content with bizarre and non-bizarre paranoid delusions Lacks any insight, lacks judgment. ICD10 Worksheet Patient Problems: Problems Problem Status Onset Dementia Acute Schizophrenia, paranoid, chronic Acute Hyponatremia Acute
[2016-11-13] MEDS ORDERED: HALOPERIDOL LACT 5 MG/ML INJ IM PRN (13:35)
[2016-11-13] MEDS ORDERED: BENZTROPINE MESYLATE 1 MG TAB PO PRN (13:35)
[2016-11-13] MEDS ORDERED: HALOPERIDOL 10 MG TAB PO SCH (21:00)
[2016-11-13] MEDS ORDERED: HALOPERIDOL 5 MG TAB PO SCH (21:00)
[2016-11-14] MEDS: NICOTINE 21 MG/24 HR PATCH TD SCH (08:56)
[2016-11-14] MEDS: LISINOPRIL 10 MG TAB PO SCH (08:56)
[2016-11-14] MEDS ORDERED: HALOPERIDOL LACT 5 MG/ML INJ IM PRN (11:30)
[2016-11-14] MEDS ORDERED: BENZTROPINE MESYLATE 2 MG/2 ML INJ IM PRN (11:30)
[2016-11-14] MEDS ORDERED: BENZTROPINE MESYLATE 1 MG TAB PO PRN (15:18)
--- NOTE | 2016-11-14 15:19 | SOAPPROG ---
SOAP Progress Note Assessment/Plan: Schizophrenia, paranoid, acute exac., TD, unspecified cognitive impairment 11/14/16 11:21 slept 30min, up and down most of night. states he prefers "pills that soothe", and only takes "unwanted pills if the law says..will take the green pill if the guard wants me to", but does not think he needs meds daily. Talks about being a born-again [employer]. no complaints. feels he is here b/c homeless, and curious about liver and brain, and may not have negar getting enough oxygen. just having water b/c eyes get dry and so does his tongue. 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 doesn't feel he needs. mild eps, stiffness calm, cooperative CM, edentulous, bearded, unwashed hair, good eye contact. nml psychom activity. mood "good", affect constricted. thoughts noted disorganized. often also omitting pronouns. denied si/hi/ah/vh and did not appear RIS. PLAN: Took po last night but only recently compliant and improving, but with no insight and with disorganized thoughts. will continue Emeds Day#2 for another day to ensure consistency and continued stability, Haldol 10mg po/im qhs and 5mg po/IM qhs, (change from 10mg bid) cogentin 1mg po bid prn eps, ativan 1 mg Q4 hours prn anxiety/agitation/sleep dispo- back to [facility] when stable with haldol IM monthly for compliance. court-ordered meds requested Objective: Vital Signs Temp Pulse Resp BP Pulse Ox 36.7 C 86 16 125/76 H 94 11/14/16 06:00 11/14/16 06:00 11/14/16 06:00 11/14/16 06:00 11/14/16 06:00 - Time Spent With Patient Time Spent With Patient: 25min - Pending Discharge Pending Discharge Within 24 Hours: No Pending Discharge Within 48 Hours: No ICD10 Worksheet Patient Problems: Problems Problem Status Onset Dementia Acute Hyponatremia Acute Schizophrenia, paranoid, chronic Acute
[2016-11-14] MEDS ORDERED: HALOPERIDOL 5 MG TAB PO SCH (21:00)
[2016-11-15] MEDS: CARBAMIDE PEROXIDE 15 ML BOTTLE EACHEAR PRN (08:46)
[2016-11-15] MEDS: LISINOPRIL 10 MG TAB PO SCH (08:46)
[2016-11-15] MEDS: NICOTINE 21 MG/24 HR PATCH TD SCH (08:47)
[2016-11-15] MEDS: ACETAMINOPHEN 325 MG TAB PO PRN (14:38)
--- NOTE | 2016-11-15 20:06 | SOAPPROG ---
SOAP Progress Note Assessment/Plan: Assessment: 61yo CM Schizophrenia, paranoid, acute exac., TD, unspecified cognitive impairment 11/14/16 11:21 slept 30min, up and down most of night. states he prefers "pills that soothe", and only takes "unwanted pills if the law says..will take the green pill if the guard wants me to", but does not think he needs meds daily. Talks about being a born-again [employer]. no complaints. feels he is here b/c homeless, and curious about liver and brain, and may not have negar getting enough oxygen. just having water b/c eyes get dry and so does his tongue. 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 doesn't feel he needs. mild eps, stiffness calm, cooperative CM, edentulous, bearded, unwashed hair, good eye contact. nml psychom activity. mood "good", affect constricted. thoughts noted disorganized. often also omitting pronouns. denied si/hi/ah/vh and did not appear RIS. PLAN: Took po last night but only recently compliant and improving, but with no insight and with disorganized thoughts. will continue Emeds Day#2 for another day to ensure consistency and continued stability, Haldol 10mg po/im qhs and 5mg po/IM qhs, (change from 10mg bid) cogentin 1mg po bid prn eps, ativan 1 mg Q4 hours prn anxiety/agitation/sleep dispo- back to [facility] when stable with haldol IM monthly for compliance. court-ordered meds requested 11/15/16 16:18 slept 6hr. took meds po. denied med s/e altho reports feeling a little stiff, no tremor. t/a "gravitational pull" he experiences so "I try to regulate water...I don't know how dry it is outside..." PLAN: d/c Emeds. taking po voluntarily. decr Haldol 10mg to qhs. schedule Cogentin 1mg qhs for EPS. Objective: Vital Signs Temp Pulse Resp BP Pulse Ox 36.7 C 84 12 114/60 98 11/15/16 06:00 11/15/16 14:40 11/15/16 14:40 11/15/16 14:40 11/15/16 14:40 - Time Spent With Patient Time Spent With Patient: 25min - Pending Discharge Pending Discharge Within 24 Hours: No Pending Discharge Within 48 Hours: No ICD10 Worksheet Patient Problems: Problems Problem Status Onset Dementia Acute Hyponatremia Acute Schizophrenia, paranoid, chronic Acute
[2016-11-15] MEDS: BENZTROPINE MESYLATE 1 MG TAB PO SCH (20:27)
[2016-11-15] MEDS: HALOPERIDOL 5 MG TAB PO SCH (20:27)
[2016-11-16] MEDS: LISINOPRIL 10 MG TAB PO SCH (08:31)
[2016-11-16] MEDS: NICOTINE 21 MG/24 HR PATCH TD SCH (08:32)
[2016-11-16] MEDS: CARBAMIDE PEROXIDE 15 ML BOTTLE EACHEAR PRN (10:28)
--- NOTE | 2016-11-16 11:59 | SOAPPROG ---
SOAP Progress Note Assessment/Plan: Assessment: Schizophrenia, paranoid. Irritable and uncooperative, but not threatening. Taking HS haloperidol, hope to continue medications as written until we have court hearing in three days. Cognitive Decline Possible dementing illness. Possible progression of negative symptoms of Schizophrenia. Will restart Aricept when mental state more stable. Tardive Dyskinesia Trying benztropine schedule at HS with haloperidol. Placement/Disposition [facility] will take Mr. Jones back as long as he is on medications. Our current plan is to get him on haloperidol monthly injections. Plan: Continue haloperidol 10 mg HS benztropine 1 mg HS lorazepam 1 mg Q4 hours prn anxiety/agitation/sleep STC and COM Letter done. [facility] can hold STC and COM in outpatient setting. Hearing scheduled for 11/19/16 at 10:30 11/16/16 11:59 Subjective: "Hello, I took all my pills." "I get depleted by the depletors." "Don't question me." Slept 4.5 hours last night. Irritable with me, but interacts with me for a few more minutes today. Has been attending some groups, and cooperating a little. Objective: Vital Signs Temp Pulse Resp BP Pulse Ox 36.7 C 84 12 114/60 98 11/15/16 06:00 11/15/16 14:40 11/15/16 14:40 11/15/16 14:40 11/15/16 14:40 Medications Generic Name Dose Route Start Last Admin Trade Name Freq PRN Reason Stop Dose Admin Benztropine Mesylate 1 mg 11/15/16 21:00 11/15/16 20:27 Cogentin PO 05/14/17 20:59 1 mg HS [place] Haloperidol 10 mg 11/15/16 21:00 11/15/16 20:27 Haldol PO 05/14/17 20:59 10 mg HS [place] Lisinopril 10 mg 11/06/16 09:00 11/16/16 08:31 Zestril PO 05/05/17 08:59 10 mg DAILY [place] MSE Awake, alert, uncooperative. Grooming poor, but hair a little better kempt today. Speech not pressured, not rapid. Mood and affect congruent. Poverty of spontaneous thoughts. Continues to respond to internal stimuli and expresses paranoid thoughts at times. Lacks insight and judgment. ICD10 Worksheet Patient Problems: Problems Problem Status Onset Dementia Acute Schizophrenia, paranoid, chronic Acute Hyponatremia Acute
[2016-11-16] MEDS: BENZTROPINE MESYLATE 1 MG TAB PO SCH (21:05)
[2016-11-16] MEDS: HALOPERIDOL 5 MG TAB PO SCH (21:05)
[2016-11-17] MEDS: LISINOPRIL 10 MG TAB PO SCH (08:36)
[2016-11-17] MEDS: NICOTINE 21 MG/24 HR PATCH TD SCH (08:36)
--- NOTE | 2016-11-17 11:51 | SOAPPROG ---
SOAP Progress Note Assessment/Plan: Assessment: Schizophrenia, paranoid. Less irritable today. A little more interactive with myself and others. Significantly paranoid about certain issues: food and "[place]" but improving. Cognitive Decline Possible dementing illness. Possible progression of negative symptoms of Schizophrenia. Will restart Aricept when mental state more stable. Tardive Dyskinesia Trying benztropine schedule at HS with haloperidol. Placement/Disposition [facility] will take Mr. Jones back as long as he is on medications. Our current plan is to get him on haloperidol monthly injections. Plan: Continue haloperidol 10 mg HS. Consider haloperidol decanoate benztropine 1 mg HS lorazepam 1 mg Q4 hours prn anxiety/agitation/sleep STC and COM Letter done. [facility] can hold STC and COM in outpatient setting. Hearing scheduled for 11/19/16 at 10:30 11/17/16 11:50 Subjective: "I pick it out right but I don't get what I order." "I have followed every view." Slept 6.5 hours. Reports good sleep. More interactive with me today. Not interested in talking to me for very long but does want to complain about the control clerk food and beverage. Per nursing report he continues to have paranoid thoughts about "[place]" and sometimes about food. 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 Hair and jones appear to be washed. A little more cooperative with interview. Still terminates interview quickly but willing to speak with me briefly. Thought processes illogical and tangential. Thought content with some paranoia, difficult to follow. Lacks insight and judgment ICD10 Worksheet Patient Problems: Problems Problem Status Onset Dementia Acute Schizophrenia, paranoid, chronic Acute Hyponatremia Acute
[2016-11-17] MEDS: BENZTROPINE MESYLATE 1 MG TAB PO SCH (20:28)
[2016-11-17] MEDS: HALOPERIDOL 5 MG TAB PO SCH (20:28)
[2016-11-18] MEDS: LISINOPRIL 10 MG TAB PO SCH (09:02)
[2016-11-18] MEDS: NICOTINE 21 MG/24 HR PATCH TD SCH (09:04)
--- NOTE | 2016-11-18 11:19 | SOAPPROG ---
SOAP Progress Note Assessment/Plan: Assessment: Schizophrenia, paranoid. Continues to respond to internal stimuli. Current dose of haloperidol does not appear to be controlling psychosis well, but is controlling psychosis enough to keep irritability under control. Mr. Jones gets upset when I mention increasing the dose of haloperidol. Pursuing COM petition and then consider Haldol decanoate. Cognitive Decline Possible dementing illness. Possible progression of negative symptoms of Schizophrenia. Will restart Aricept when mental state more stable. Tardive Dyskinesia Trying benztropine schedule at HS with haloperidol. Placement/Disposition [facility] will take Mr. Jones back as long as he is on medications. Our current plan is to get him on haloperidol monthly injections. Plan: Continue haloperidol 10 mg HS. Consider haloperidol decanoate benztropine 1 mg HS lorazepam 1 mg Q4 hours prn anxiety/agitation/sleep STC and COM Letter done. [facility] can hold STC and COM in outpatient setting. Hearing scheduled for 11/19/16 at 10:30 11/18/16 11:21 Subjective: "I karen a picture of Indra." Slept only 4 hours last night but does nap during day. Energy good today. Appears to respond to internal stimuli much of the day. Objective: Vital Signs Temp Pulse Resp BP Pulse Ox 36.8 C 71 12 126/77 H 96 11/17/16 06:00 11/17/16 06:00 11/17/16 06:00 11/18/16 09:02 11/17/16 06:00 Medications Generic Name Dose Route Start Last Admin Trade Name Freq PRN Reason Stop Dose Admin Lisinopril 10 mg 11/06/16 09:00 11/18/16 09:02 Zestril PO 05/05/17 08:59 10 mg DAILY [place] Haloperidol 10 mg 11/15/16 21:00 11/17/16 20:28 Haldol PO 05/14/17 20:59 10 mg HS [place] Benztropine Mesylate 1 mg 11/15/16 21:00 11/17/16 20:28 Cogentin PO 05/14/17 20:59 1 mg HS CHESTER MSE Awake, alert, casually dressed, grooming fair Appears internally preoccupied. Has been talking to himself today. Also has stereotyped movements of his hands, stroking his jones in particular. Thought processes disorganized and tangential Lacks insight and judgment ICD10 Worksheet Patient Problems: Problems Problem Status Onset Dementia Acute Schizophrenia, paranoid, chronic Acute Hyponatremia Acute
[2016-11-18] MEDS: BENZTROPINE MESYLATE 1 MG TAB PO SCH (20:56)
[2016-11-18] MEDS: HALOPERIDOL 5 MG TAB PO SCH (20:56)
[2016-11-19] MEDS: LISINOPRIL 10 MG TAB PO SCH ×2 (08:41→11:09)
[2016-11-19] MEDS: NICOTINE 21 MG/24 HR PATCH TD SCH (08:41)
--- NOTE | 2016-11-19 14:55 | SOAPPROG ---
SOAP Progress Note Assessment/Plan: Assessment: Schizophrenia, paranoid. Continues to respond to internal stimuli. Current dose of haloperidol does not appear to be controlling psychosis well, but is controlling psychosis enough to keep irritability under control. Now that we have had court hearing will consider continuing Haldol 10 mg at HS and giving Haldol Dec 100 mg every four weeks. Cognitive Decline Possible dementing illness. Possible progression of negative symptoms of Schizophrenia. Will restart Aricept when mental state more stable. Tardive Dyskinesia Trying benztropine schedule at HS with haloperidol. Placement/Disposition [facility] will take Mr. Jones back as long as he is on medications. Our current plan is to get him on haloperidol monthly injections. Plan: Continue haloperidol 10 mg HS. Consider haloperidol decanoate 100 mg every four weeks benztropine 1 mg HS lorazepam 1 mg Q4 hours prn anxiety/agitation/sleep STC upheld. COM granted. 11/19/16 14:59 Subjective: "I don't want the medicines added to because I'm doing well." "I had a seizure in my left arm." Mr. Jones is taking haloperidol 10 mg at HS. It is helping. He continues to have some paranoid thought content and IOR, but his behavior is better. He is cooperating with staff members better. He is not as aggressive with others. COM/Cert hearing today. Shredding Floor Equipment Operator upheld the cert and granted COM. Order from court will follow. I informed Mr. Jones of outcome. Our plan is to start haldol decanoate when the court order arrives. Objective: Vital Signs Temp Pulse Resp BP Pulse Ox 36.6 C 62 12 133/69 H 93 11/19/16 11:00 11/19/16 11:00 11/19/16 11:00 11/19/16 11:09 11/19/16 11:00 Medications Generic Name Dose Route Start Last Admin Trade Name Freq PRN Reason Stop Dose Admin Lisinopril 10 mg 11/06/16 09:00 11/19/16 11:09 Zestril PO 05/05/17 08:59 10 mg DAILY [place] Benztropine Mesylate 1 mg 11/15/16 21:00 11/18/16 20:56 Cogentin PO 05/14/17 20:59 1 mg HS [place] Haloperidol 10 mg 11/15/16 21:00 11/18/16 20:56 Haldol PO 05/14/17 20:59 10 mg HS CHE[place] MSE Awake, alert, casually dressed ill-groomed speech not pressured, not rapid thought content with paranoid delusions and IOR Lacks insight, lacks judgment ICD10 Worksheet Patient Problems: Problems Problem Status Onset Dementia Acute Schizophrenia, paranoid, chronic Acute Hyponatremia Acute
[2016-11-19] MEDS: BENZTROPINE MESYLATE 1 MG TAB PO SCH (21:02)
[2016-11-19] MEDS: HALOPERIDOL 5 MG TAB PO SCH (21:02)
[2016-11-20] MEDS: NICOTINE 21 MG/24 HR PATCH TD SCH (08:55)
[2016-11-20] MEDS: LISINOPRIL 10 MG TAB PO SCH (08:55)
[2016-11-20] MEDS ORDERED: HALOPERIDOL DECANOATE 100 MG/ML AMP IM ONE (13:38)
--- NOTE | 2016-11-20 13:42 | SOAPPROG ---
SOAP Progress Note Assessment/Plan: Assessment: Schizophrenia, paranoid. Continues to respond to internal stimuli. Current dose of haloperidol does not appear to be controlling psychosis well, but is controlling psychosis enough to keep irritability under control. Now that we have had court hearing will start Haldol Dec 100 mg every four weeks. Continue oral Haldol and consider tapering over time. Cognitive Decline Possible dementing illness. Possible progression of negative symptoms of Schizophrenia. Will restart Aricept when mental state more stable. Tardive Dyskinesia Trying benztropine schedule at HS with haloperidol. Placement/Disposition [facility] will take Mr. Jones back as long as he is on medications. Plan: Continue haloperidol 10 mg HS. Start haloperidol decanoate 100 mg every four weeks benztropine 1 mg HS lorazepam 1 mg Q4 hours prn anxiety/agitation/sleep [facility] [facility]. [facility] granted. 11/20/16 13:46 Subjective: "I haven't slept since I was 52." "[place] is at full maximum." Slept only 30 min last night. Can not tell me why he slept poorly. Court ordered med petition granted. Informed patient we will start Haldol Decanoate today. Continues to express bizarre (and sometimes non-bizarre) delusions. Objective: Vital Signs Temp Pulse Resp BP Pulse Ox 36.5 C 85 14 133/78 H 94 11/20/16 06:00 11/20/16 06:00 11/20/16 06:00 11/20/16 06:00 11/20/16 06:00 Medications Generic Name Dose Route Start Last Admin Trade Name Arleth PRN Reason Stop Dose Admin Benztropine Mesylate 1 mg 11/15/16 21:00 11/19/16 21:02 Cogentin PO 05/14/17 20:59 1 mg HS [place] Haloperidol 10 mg 11/15/16 21:00 11/19/16 21:02 Haldol PO 05/14/17 20:59 10 mg HS [place] Lisinopril 10 mg 11/06/16 09:00 11/20/16 08:55 Zestril PO 05/05/17 08:59 10 mg DAILY [place] MSE Awake, alert, but not oriented to date Casually dressed, unusual appearance, wearing shirt with sleeves that hang down over hands Stereotyped stroking of jones with left index finger Limited eye contact, but improved since admission Speech not rapid but a little pressured Thought content with bizarre delusions, and appears to respond to internal stimuli at times Thought processes disorganized and tangential Lacks insight and judgment ICD10 Worksheet Patient Problems: Problems Problem Status Onset Dementia Acute Schizophrenia, paranoid, chronic Acute Hyponatremia Acute
[2016-11-20] MEDS ORDERED: HALOPERIDOL DECANOATE 50 MG/ML AMP IM ONE (18:00)
[2016-11-20] MEDS: HALOPERIDOL 5 MG TAB PO SCH (20:15)
[2016-11-20] MEDS: BENZTROPINE MESYLATE 1 MG TAB PO SCH (20:15)
[2016-11-21] MEDS: NICOTINE 21 MG/24 HR PATCH TD SCH (08:50)
[2016-11-21] MEDS: LISINOPRIL 10 MG TAB PO SCH (08:50)
--- NOTE | 2016-11-21 14:12 | SOAPPROG ---
SOAP Progress Note Assessment/Plan: Assessment: Per Dr. Street's SOAP progress note on 11/20/16: Assessment: Schizophrenia, paranoid. Continues to respond to internal stimuli. Current dose of haloperidol does not appear to be controlling psychosis well, but is controlling psychosis enough to keep irritability under control. Now that we have had court hearing will start Haldol Dec 100 mg every four weeks. Continue oral Haldol and consider tapering over time. Cognitive Decline Possible dementing illness. Possible progression of negative symptoms of Schizophrenia. Will restart Aricept when mental state more stable. Tardive Dyskinesia Trying benztropine schedule at HS with haloperidol. Placement/Disposition [facility] will take Mr. Jones back as long as he is on medications. Plan: Continue haloperidol 10 mg HS. Start haloperidol decanoate 100 mg every four weeks benztropine 1 mg HS lorazepam 1 mg Q4 hours prn anxiety/agitation/sleep STC upheld. COM granted. 11/21/16 14:08 Plan: 1. Follow tx plan as outlined by Dr. Street. Patient received his first Haldol dec injection on 11/20/16. 2. Dementia is likely a significant contributor to his declining mental status, as well as his psychosis, disruptive behavior, agitation and erratic behaviors. Unlikely that Aricept will be of much benefit, but would recommend trying it and monitoring with neuropsych evaluations over time. 3. Now that patient is on COM, recommend d/c back to [facility]. Subjective: Met with patient, reviewed chart and discussed with staff. Patient was lying in bed wearing shirt and scrub bottoms without socks. He is unkempt and dishevelled , especially his hair which is very dirty and disarrayed. Patient says, "I've been taking my meds" and "I've been poisoned by the kitchen." He thinks the Rice Che[employer] cereal is poisoned and wants to eat "something wholesome like chicken , turkey, beef, Raisin Bran...." Patient is only oriented to person. He denies any SI/HI. Objective: Vital Signs Temp Pulse Resp BP Pulse Ox 36.5 C 85 14 133/78 H 94 11/20/16 06:00 11/20/16 06:00 11/20/16 06:00 11/20/16 06:00 11/20/16 06:00 MSE: Unkempt, dishevelled, lying in bed. Affect: Labile Mood: "OK" TP: Disorganized, illogical TC: Denies AH/VH, paranoid delusions, denies any SI/ HI Insight/Judgment: Impaired - Time Spent With Patient Time Spent With Patient: 20" - Pending Discharge Pending Discharge Within 24 Hours: No ICD10 Worksheet Patient Problems: Problems Problem Status Onset Dementia Acute Schizophrenia, paranoid, chronic Acute Hyponatremia Acute - ICD10 Problem Qualifiers (1) Dementia Qualifiers: Dementia type: unspecified type Alzheimer's disease onset: A Dementia behavioral disturbance: with behavioral disturbance Qualified Code(s): F03.91 - Unspecified dementia with behavioral disturbance (2) Schizophrenia, paranoid, chronic
[2016-11-21] MEDS: BENZTROPINE MESYLATE 1 MG TAB PO SCH (20:13)
[2016-11-21] MEDS: HALOPERIDOL 5 MG TAB PO SCH (20:13)
[2016-11-22] MEDS: MEMANTINE HCL 5 MG TAB PO SCH (08:46)
[2016-11-22] MEDS: LISINOPRIL 10 MG TAB PO SCH (08:46)
[2016-11-22] MEDS: NICOTINE 21 MG/24 HR PATCH TD SCH (08:49)
--- NOTE | 2016-11-22 14:05 | SOAPPROG ---
SOAP Progress Note Assessment/Plan: Assessment: Per Dr. Street's SOAP progress note on 11/20/16: Assessment: Schizophrenia, paranoid. Continues to respond to internal stimuli. Current dose of haloperidol does not appear to be controlling psychosis well, but is controlling psychosis enough to keep irritability under control. Now that we have had court hearing will start Haldol Dec 100 mg every four weeks. Continue oral Haldol and consider tapering over time. Cognitive Decline Possible dementing illness. Possible progression of negative symptoms of Schizophrenia. Will restart Aricept when mental state more stable. Tardive Dyskinesia Trying benztropine schedule at HS with haloperidol. Placement/Disposition [facility] will take Mr. Jones back as long as he is on medications. Plan: Continue haloperidol 10 mg HS. Start haloperidol decanoate 100 mg every four weeks benztropine 1 mg HS lorazepam 1 mg Q4 hours prn anxiety/agitation/sleep STC upheld. COM granted. 11/21/16 14:08 Plan: 1. Follow tx plan as outlined by Dr. Street. Patient received his first Haldol dec injection on 11/20/16. 2. Dementia is likely a significant contributor to his declining mental status, as well as his psychosis, disruptive behavior, agitation and erratic behaviors. Unlikely that Aricept will be of much benefit, but would recommend trying it and monitoring with neuropsych evaluations over time. 3. Now that patient is on COM, recommend d/c back to [facility]. 11/22/16 14:01 Plan: 1. Patient still thinks he's being poisoned, but taking meds appropriately. 2. CCM - started Namenda instead of Aricept d/t concerns about QTc prolongation. 3. Will get an EKG to establish baseline. Subjective: Met with patient and discussed with staff. Patient is standing at the sink in his room with an tea bag and mug. He tells , "I don't have time to talk right now, I'm busy trying to get rid of contaminants." Patient is pleasant and cooperative, participates in unit activities and follow milieu rules. No SI/HI. Objective: Vital Signs Temp Pulse Resp BP Pulse Ox 36.5 C 85 14 133/78 H 94 11/20/16 06:00 11/20/16 06:00 11/20/16 06:00 11/20/16 06:00 11/20/16 06:00 MSE: Unkempt, dishevelled, jones, wearing plaid long sleeve shirt. Affect: Euthymic Mood: "Busy" TP: Illogical, disorganized TC: Exhibits paranoid delusions, denies AH/VH, denies SI/HI Insight/Judgment: Impaired - Time Spent With Patient Time Spent With Patient: 15" - Pending Discharge Pending Discharge Within 24 Hours: No ICD10 Worksheet Patient Problems: Problems Problem Status Onset Dementia Acute Schizophrenia, paranoid, chronic Acute Hyponatremia Acute - ICD10 Problem Qualifiers (1) Dementia Qualifiers: Dementia type: unspecified type Alzheimer's disease onset: A Dementia behavioral disturbance: with behavioral disturbance Qualified Code(s): F03.91 - Unspecified dementia with behavioral disturbance (2) Schizophrenia, paranoid, chronic
[2016-11-22] MEDS: BENZTROPINE MESYLATE 1 MG TAB PO SCH (20:29)
[2016-11-22] MEDS: HALOPERIDOL 5 MG TAB PO SCH (20:29)
[2016-11-23] MEDS: NICOTINE POLACRILEX 2 MG GUM B PRN (04:54)
[2016-11-23] MEDS: MEMANTINE HCL 5 MG TAB PO SCH (08:36)
[2016-11-23] MEDS: NICOTINE 21 MG/24 HR PATCH TD SCH (08:36)
[2016-11-23] MEDS: LISINOPRIL 10 MG TAB PO SCH (08:36)
--- NOTE | 2016-11-23 14:52 | SOAPPROG ---
SOAP Progress Note Assessment/Plan: Assessment: Plan: 11/23/16 14:52 Slow improvement. CCM. Subjective: Pt seen, discussed with staff, chart reviewed. He is guarded, refusing to talk to me and then calling me back over. He is angry that he was given a shot against his will. He states, "Haldol is bad for me and I'm not taking it again. " Behaviors remain in good control with no aggression. Objective: Vital Signs Temp Pulse Resp BP Pulse Ox 36.6 C 74 14 136/72 H 95 11/23/16 06:00 11/23/16 06:00 11/23/16 06:00 11/23/16 06:00 11/23/16 06:00 MSE: Guarded, hostile. Affect is constricted, irritable. Mood is not stated. TP disorganized. TC reveals paranoia. - Time Spent With Patient Time Spent With Patient: 15" ICD10 Worksheet Patient Problems: Problems Problem Status Onset Dementia Acute Schizophrenia, paranoid, chronic Acute Hyponatremia Acute
[2016-11-23] MEDS: HALOPERIDOL 5 MG TAB PO SCH (21:05)
[2016-11-23] MEDS: BENZTROPINE MESYLATE 1 MG TAB PO SCH (21:06)
[2016-11-24] MEDS: MEMANTINE HCL 5 MG TAB PO SCH ×2 (08:59→12:04)
[2016-11-24] MEDS: LISINOPRIL 10 MG TAB PO SCH ×2 (09:00→12:03)
[2016-11-24] MEDS: NICOTINE 21 MG/24 HR PATCH TD SCH (09:09)
--- NOTE | 2016-11-24 09:09 | CPEKG ---
Heart Rate: 94 RR Interval: 638 P-R Interval: 144 QRSD Interval: 80 QT Interval: 344 QTC Interval: 431 P Oden: 76 QRS Oden: 43 T Wave Oden: 73 EKG Severity - NORMAL ECG - EKG Impression: SINUS RHYTHM EKG Impression: compared with 11/03/2016 at 6:53 a.m., no significant change Electronically Signed By: Kristine Carmichael 24-Nov-2016 10:38:17
--- NOTE | 2016-11-24 16:49 | SOAPPROG ---
SOAP Progress Note Assessment/Plan: Assessment: Plan: 11/23/16 14:52 Slow improvement. CCM. 11/24/16 16:49 Remains quite ill. CCM. Subjective: Pt seen, discussed with staff. Remains hostile and resistive to most interactions. He will not discuss medications or treatment. Becomes angry and states, "I don't want any of your meds." Objective: Vital Signs Temp Pulse Resp BP Pulse Ox 36.8 C 100 12 124/74 H 100 11/24/16 08:56 11/24/16 08:56 11/24/16 08:56 11/24/16 08:56 11/24/16 08:56 MSE: Moderately agitated, irritable. Affect is irritable, constricted. Mood is "bad." TP disorganized. TC reveals paranoia, AH's. - Time Spent With Patient Time Spent With Patient: 15" ICD10 Worksheet Patient Problems: Problems Problem Status Onset Dementia Acute Schizophrenia, paranoid, chronic Acute Hyponatremia Acute
[2016-11-24] MEDS: HALOPERIDOL 5 MG TAB PO SCH (19:38)
[2016-11-24] MEDS: BENZTROPINE MESYLATE 1 MG TAB PO SCH (19:38)
[2016-11-24] MEDS: DONEPEZIL HCL 5 MG TAB PO SCH (19:39)
[2016-11-24] MEDS: ACETAMINOPHEN 325 MG TAB PO PRN (19:45)
[2016-11-25] MEDS: NICOTINE 21 MG/24 HR PATCH TD SCH (08:55)
[2016-11-25] MEDS: MEMANTINE HCL 5 MG TAB PO SCH (11:10)
[2016-11-25] MEDS: LISINOPRIL 10 MG TAB PO SCH (11:10)
--- NOTE | 2016-11-25 14:02 | SOAPPROG ---
SOAP Progress Note Assessment/Plan: Assessment: Plan: 11/23/16 14:52 Slow improvement. CCM. 11/24/16 16:49 Remains quite ill. CCM. 11/25/16 14:02 Continued improvement. Will [facility], continue d/c planning. Subjective: Pt seen, discussed with staff. Calmer today, less agitated. Allows me to examine his ears. Continues to refuse PO meds. Objective: Vital Signs Temp Pulse Resp BP Pulse Ox 36.7 C 91 12 137/73 H 94 11/25/16 06:00 11/25/16 06:00 11/25/16 06:00 11/25/16 06:00 11/25/16 06:00 MSE: Guarded, resistant to interaction, but allows exam. Affect is constricted , irritable. Mood is "fine." TP linear at times, disorganized at others. TC reveals paranoia with no mention of AH's. - Time Spent With Patient Time Spent With Patient: 25" ICD10 Worksheet Patient Problems: Problems Problem Status Onset Dementia Acute Schizophrenia, paranoid, chronic Acute Hyponatremia Acute
[2016-11-25] MEDS: DONEPEZIL HCL 5 MG TAB PO SCH (20:25)
[2016-11-25] MEDS: BENZTROPINE MESYLATE 1 MG TAB PO SCH (20:25)
[2016-11-25] MEDS: HALOPERIDOL 5 MG TAB PO SCH (21:04)
[2016-11-26] MEDS: NICOTINE 21 MG/24 HR PATCH TD SCH (08:04)
[2016-11-26] MEDS: MEMANTINE HCL 5 MG TAB PO SCH (08:04)
[2016-11-26] MEDS: LISINOPRIL 10 MG TAB PO SCH (08:04)
--- NOTE | 2016-11-26 15:51 | SOAPPROG ---
SOAP Progress Note Assessment/Plan: Assessment: Plan: 11/23/16 14:52 Slow improvement. CCM. 11/24/16 16:49 Remains quite ill. CCM. 11/25/16 14:02 Continued improvement. Will [facility], continue d/c planning. 11/26/16 15:51 Appears much closer to baseline. CCM. Subjective: Pt seen, discussed with staff. Accosts me in the day room to tell me he wants to go back to [facility]. He is calmer over the past several days, less irritable. Grooming remains poor. He continues to refuse PO meds. Objective: Vital Signs Temp Pulse Resp BP Pulse Ox 36.3 C 92 14 141/78 H 93 11/26/16 06:42 11/26/16 06:42 11/26/16 06:42 11/26/16 06:42 11/26/16 06:42 - Time Spent With Patient Time Spent With Patient: 15" ICD10 Worksheet Patient Problems: Problems Problem Status Onset Dementia Acute Schizophrenia, paranoid, chronic Acute Hyponatremia Acute
[2016-11-26] MEDS: BENZTROPINE MESYLATE 1 MG TAB PO SCH (20:39)
[2016-11-26] MEDS: HALOPERIDOL 5 MG TAB PO SCH (20:40)
[2016-11-26] MEDS: DONEPEZIL HCL 5 MG TAB PO SCH (20:40)
[2016-11-27] MEDS: MEMANTINE HCL 5 MG TAB PO SCH (08:49)
[2016-11-27] MEDS: NICOTINE 21 MG/24 HR PATCH TD SCH (08:49)
[2016-11-27] MEDS: LISINOPRIL 10 MG TAB PO SCH (08:49)
--- NOTE | 2016-11-27 13:56 | SOAPPROG ---
SOAP Progress Note Assessment/Plan: Assessment: Plan: 11/23/16 14:52 Slow improvement. CCM. 11/24/16 16:49 Remains quite ill. CCM. 11/25/16 14:02 Continued improvement. Will [facility], continue d/c planning. 11/26/16 15:51 Appears much closer to baseline. CCM. 11/27/16 13:56 Continued slow improvement. CCM. Finalize d/c plan. Subjective: Pt seen, discussed with staff. Again tells me he is ready to return to [facility]. Asks when he will leave. I try to link this to his compliance with PO meds, but he becomes angry and leaves interview. Overall fewer outbursts, less agitation. Objective: Vital Signs Temp Pulse Resp BP Pulse Ox 36.6 C 81 14 128/87 H 95 11/27/16 06:00 11/27/16 06:00 11/27/16 06:00 11/27/16 08:49 11/27/16 06:00 MSE: Moderately agitated, guarded. Affect is constricted, irritable. Mood is "OK." TP disorganized. TC reveals paranoia, AH's/RIS. - Time Spent With Patient Time Spent With Patient: 15" ICD10 Worksheet Patient Problems: Problems Problem Status Onset Dementia Acute Schizophrenia, paranoid, chronic Acute Hyponatremia Acute
[2016-11-27] MEDS: BENZTROPINE MESYLATE 1 MG TAB PO SCH (20:06)
[2016-11-27] MEDS: HALOPERIDOL 5 MG TAB PO SCH (20:06)
[2016-11-27] MEDS: DONEPEZIL HCL 5 MG TAB PO SCH (20:06)
[2016-11-28 06:20] VITALS: BP 137/83; PULSE 71; RESP 12; TEMP 98.2; O2SAT 96
[2016-11-28] MEDS: NICOTINE 21 MG/24 HR PATCH TD SCH (07:45)
[2016-11-28] MEDS: MEMANTINE HCL 5 MG TAB PO SCH (08:02)
[2016-11-28] MEDS: LISINOPRIL 10 MG TAB PO SCH (08:02)
--- NOTE | 2016-11-28 14:55 | SOAPPROG ---
SOAP Progress Note Assessment/Plan: Assessment: Interim Plan per Dr. Ramirez's notes: Plan: 11/23/16 14:52 Slow improvement. [facility]. 11/24/16 16:49 Remains quite ill. [facility]. 11/25/16 14:02 Continued improvement. Will [facility], continue d/c planning. 11/26/16 15:51 Appears much closer to baseline. [facility]. 11/27/16 13:56 Continued slow improvement. [facility]. Finalize d/c plan. 11/28/16 14:50 Plan: 1. [facility] - patient is refusing his PO Haldol, but received his first Haldol dec injection on 11/20/16 2. Patient is laughing loudly in hallways, does participate in art therapy group , but is extremely preoccupied, does not interact with staff or peers. 3. Plan to d/c on 11/30/16 back to [facility] Subjective: Met with patient, discussed with staff. Patient presents dishevelled, wearing green hospital gown. He has made slow improvement during his hospital stay. He is not agitated, hostile or aggressive toward staff. He is able to follow staff directions and milieu rules. He does participate in art groups and music group that require minimal engagement. He has not been taking his PO meds, but did get a Haldol dec injection per court order on 11/20/16. He is not a danger to himself or anyone else. Objective: Vital Signs Temp Pulse Resp BP Pulse Ox 36.8 C 71 12 137/83 H 96 11/28/16 06:00 11/28/16 06:00 11/28/16 06:00 11/28/16 06:00 11/28/16 06:00 MSE: Wearing green gown, unkempt hair and jones, seated at table drawing and listening to music. Affect: Labile, laughing inappropriately Mood: "OK" TP: Disorganized TC: Denies any AH/VH, but presents with RIS, no SI/HI Insight/ Judgment: Impaired - Time Spent With Patient Time Spent With Patient: 20" - Pending Discharge Pending Discharge Within 24 Hours: No Pending Discharge Within 48 Hours: Yes Pending Discharge Date: 11/30/16 (D/C to [facility] on 9/11/17) Pending Discharge Time: 11:00 ICD10 Worksheet Patient Problems: Problems Problem Status Onset Dementia Acute Schizophrenia, paranoid, chronic Acute Hyponatremia Acute - ICD10 Problem Qualifiers (1) Dementia Qualifiers: Dementia type: unspecified type Dementia behavioral disturbance: with behavioral disturbance Qualified Code(s): F03.91 - Unspecified dementia with behavioral disturbance (2) Schizophrenia, paranoid, chronic
[2016-11-28] MEDS: HALOPERIDOL 5 MG TAB PO SCH ×2 (20:15→20:37)
[2016-11-28] MEDS: BENZTROPINE MESYLATE 1 MG TAB PO SCH ×2 (20:15→20:37)
[2016-11-28] MEDS: DONEPEZIL HCL 5 MG TAB PO SCH ×2 (20:15→20:37)
[2016-11-29] MEDS: NICOTINE 21 MG/24 HR PATCH TD SCH (11:13)
[2016-11-29] MEDS: MEMANTINE HCL 5 MG TAB PO SCH (11:14)
[2016-11-29] MEDS: LISINOPRIL 10 MG TAB PO SCH (11:14)
--- NOTE | 2016-11-29 12:20 | SOAPPROG ---
SOAP Progress Note Assessment/Plan: Assessment: Interim Plan per Dr. Ramirez's notes: Plan: 11/23/16 14:52 Slow improvement. CCM. 11/24/16 16:49 Remains quite ill. CCM. 11/25/16 14:02 Continued improvement. Will [facility], continue d/c planning. 11/26/16 15:51 Appears much closer to baseline. [facility]. 11/27/16 13:56 Continued slow improvement. [facility]. Finalize d/c plan. 11/28/16 14:50 Plan: 1. [facility] - patient is refusing his PO Haldol, but received his first Haldol dec injection on 11/20/16 2. Patient is laughing loudly in hallways, does participate in art therapy group , but is extremely preoccupied, does not interact with staff or peers. 3. Plan to d/c on 11/30/16 back to [facility] 11/29/16 12:17 Plan: 1. CCM - no change 2. D/C to [facility] on Wednesday 3. Patient is on STC and COM Subjective: Met with patient and discussed with staff. Patient was encountered playing the piano loudly in group room. He is still laughing inappropriately and talking to himself, however he is not as loud or hyperactive as he was yesterday. He slept 4.5 hrs last night which is more than the previous night (2.5 hrs). He is dishevelled and his hair and jones are unkempt. He is still wearing green hospital gown. He denies any AH/VH, but patient is clearly responding to IS. He is not able to provide logical or coherent responses to questions. Objective: Vital Signs Temp Pulse Resp BP Pulse Ox 36.8 C 71 12 137/83 H 96 11/28/16 06:00 11/28/16 06:00 11/28/16 06:00 11/28/16 06:00 11/28/16 06:00 MSE: Dishevelled, unkempt, wearing green hospital gown, playing the piano loudly. Affect: Labile, laughing inappropriately Mood: No response TP: Disorganized, illogical, incoherent at times TC: Denies any AH/VH, but strong evidence of RIS (talking to himself in loud voice), no SI/HI Insight/Judgment: Impaired - Time Spent With Patient Time Spent With Patient: 20" - Pending Discharge Pending Discharge Within 24 Hours: Yes Pending Discharge Date: 11/30/16 (D[facility]C to [facility]) Pending Discharge Time: 11:00 ICD10 Worksheet Patient Problems: Problems Problem Status Onset Dementia Acute Schizophrenia, paranoid, chronic Acute Hyponatremia Acute - ICD10 Problem Qualifiers (1) Dementia Qualifiers: Dementia type: unspecified type Dementia behavioral disturbance: with behavioral disturbance Qualified Code(s): F03.91 - Unspecified dementia with behavioral disturbance (2) Schizophrenia, paranoid, chronic
[2016-11-29] MEDS: DONEPEZIL HCL 5 MG TAB PO SCH ×2 (20:18→20:25)
[2016-11-29] MEDS: BENZTROPINE MESYLATE 1 MG TAB PO SCH ×2 (20:18→20:24)
[2016-11-29] MEDS: HALOPERIDOL 5 MG TAB PO SCH ×2 (20:18→20:25)
[2016-11-30] MEDS: NICOTINE 21 MG/24 HR PATCH TD SCH (08:44)
[2016-11-30] MEDS: LISINOPRIL 10 MG TAB PO SCH (09:06)
[2016-11-30] MEDS: MEMANTINE HCL 5 MG TAB PO SCH (09:06)
== END 2016-11-30 13:35 | DRG 885 ==
LOC: EDUNIT# → UNDOADMIN 11-05 12:42 → BBEH 11-05 12:42
PROVIDERS: ADMIT Internal Medicine Endocrinology, Diabetes & Metabolism; ATTEND Psychiatry & Neurology Behavioral Neurology & Neuropsychiatry
DX: F20.0 Paranoid schizophrenia (principal); T43.506A Underdosing of unspecified antipsychotics and neuroleptics, initial encounter; F03.90 Unspecified dementia, unspecified severity, without behavioral disturbance, psychotic disturbance, mood disturbance, and anxiety; Z72.0 Tobacco use; I10 Essential (primary) hypertension
CPT/HCPCS: 80305; G0480; J0515; J1200; J1631; J2060

== ENCOUNTER 2017-05-15 15:55 | Emergency (ER) | payer MEDICAID, OTHER ==
[2017-05-15 16:10] VITALS: RESP 18; TEMP 98.4
--- NOTE | 2017-05-15 16:20 | EDPHY ---
H & P Time Seen by Provider: 05/15/17 15:56 HPI/ROS: CHIEF COMPLAINT: Schizophrenia, dementia HISTORY OF PRESENT ILLNESS: 62-year-old male presents to the emergency department by ambulance from [facility]. Patient has a known history of traumatic brain injury, schizophrenia, and dementia. The staff at [facility] was concerned because he was becoming aggressive with staff. He has refused medications in the past, however he now receives Invega injections monthly. He is due for his next injection May 20. No reported trauma. The patient was requesting antibiotics for his urine infection. No reports of fever. No vomiting. The staff at [facility] feels that he has at baseline. REVIEW OF SYSTEMS: Constitutional: No fever, no chills. Eyes: No double or blurry vision. ENT: No sore throat. Respiratory: No cough, no shortness of breath. Cardiac: No chest pain. Gastrointestinal: No abdominal pain, vomiting or diarrhea. Genitourinary: No dysuria. Musculoskeletal: No neck or back pain. Skin: No rashes. Neurological: No headache. Past Medical/Surgical History: Traumatic brain injury, schizophrenia, dementia Social History: Lives at [facility] Smoking Status: Current every day smoker Physical Exam: General Appearance: Alert, no distress. Hyperverbal. Eyes: Pupils equal and round. Extraocular motions are all intact. ENT: Mouth: Mucous membranes slightly dry per. Cerumen impaction noted in the right ear. Left tympanic membrane is clear. Respiratory: No wheezing, rhonchi, or rales, lungs are clear to auscultation. Cardiovascular: Regular rate and rhythm. Gastrointestinal: Abdomen is soft and nontender, no masses, no rebound or guarding, bowel sounds normal. Neurological: Uncooperative, cannot determine. Skin: Warm and dry, no rashes. Musculoskeletal: Nontender to palpate along the cervical, thoracic or lumbar spine. Neck is supple. Extremities: Full range of motion and no peripheral edema. Psychiatric: no agitation. Constitutional: Initial Vital Signs Temperature (C) 36.9 C 05/15/17 16:07 Heart Rate 114 H 05/15/17 16:07 Respiratory Rate 18 05/15/17 16:07 Blood Pressure 166/94 H 05/15/17 16:07 O2 Sat (%) 93 05/15/17 16:07 O2 Delivery Mode Room Air Allergies/Adverse Reactions: No Known Allergies Allergy (Verified 07/03/16 13:44) Home Medications: Medication Instructions Recorded Melatonin [Melatonin 3 MG (*)] 3 mg PO HS PRN 11/05/16 Carbamide Peroxide [Debrox Ear 5 drop LEFTEAR BID #1 bottle 11/30/16 drops (*)] Haloperidol [Haldol 5 MG (*)] 10 mg PO HS #30 tab 11/30/16 Lisinopril [Zestril 10 mg (*)] 10 mg PO DAILY #30 tab 11/30/16 Lisinopril [Zestril 10 mg (*)] 10 mg PO DAILY #30 tab 11/30/16 Medical Decision Making ED Course/Re-evaluation: 62-year-old male with a known history of traumatic brain injury, schizophrenia and dementia presents after he was aggressive with staff at [facility]. The patient was just seen at [facility] 3 days ago on 05/12/2017. At that time laboratory studies were drawn which were all within normal limits. There has been no reports of vomiting. The patient has been cooperative up until today with staff at [facility]. I do not think repeating laboratory studies are indicated. The patient is otherwise medically cleared and will be welcomed back at [facility]. The nurse, Charis, also spoke with staff at [facility] about this patient and they do feel that he is at baseline Differential Diagnosis: Altered mental status including but not limited to hypoglycemia, infectious process, electrolyte abnormality, head injury and intoxicants. - Data Points Medications Given: Discontinued Medications Olanzapine (Olanzapine) 10 mg PO ONCE ONE Stop: 05/15/17 16:24 Last Admin: 05/15/17 17:19 Dose: Not Given Departure - Departure Disposition: Home, Routine, Self-Care Clinical Impression: Schizophrenia Qualifiers: Schizophrenia type: unspecified Qualified Code(s): F20.9 - Schizophrenia, unspecified Condition: Good Instructions: Schizophrenia (ED), Dementia (ED) Additional Instructions: Continue medications as prescribed. Referrals: MELISSA GARCIA [Other] - As per Instructions
[2017-05-15] MEDS ORDERED: OLANZapine 5 MG TAB PO ONE (16:23)
[2017-05-15] MEDS ORDERED: OLANZapine DISINTEGR 10 MG TAB ONE (16:57)
[2017-05-15 17:35] VITALS: BP 158/88; PULSE 90; O2SAT 97
--- NOTE | 2017-05-15 17:38 | ASMTCMCOM ---
CM Note CM Note Notes: Patient brought into the ED via EMS from [facility] for AMS, refusing his psychiatric medications. Patient refused any medications in the ED and requested to return to . This CM arranged for WC transport via [email or web address] ([phone]); spoke with Dave and he will arrive to the ED by 1814 to transport pt to . This CM spoke with LENKA Vieira at and gave RN report, notified her of patient returning via [place], all questions answered. CM available for further assistance if needed. Date Signed: 05/15/2017 05:37 PM Electronically Signed By:Rhonda Sheets RN
--- NOTE | 2017-05-15 17:41 | ASDISCHSUM ---
Discharge Information Plan Status:SNF Medically Cleared to Leave: Discharge Date: D/C Disposition:Nursing Home Facility ADT D/C Disposition:Home, Routine, Self-Care Projected Discharge Date: Transportation at D/C:Wheelchair Van Discharge Delay Reason: Follow-Up Date: Discharge Slot: Final Diagnosis: Placement Information Patient Contact Information Contact Name:CORONA Relationship:Sister Address: Home Phone: Work Phone: City: Alternate Phone: State/[place] Code: Email: Financial Information Financial Class:Medicare Primary Plan Desc:MEDICARE OUTPATIENT Primary Plan Number:[id number] Secondary Plan Desc: Secondary Plan Number: Assessment Information [facility] Progress Note CM Note CM Note Notes: Patient brought into the ED via EMS from [facility] for AMS, refusing his psychiatric medications. Patient refused any medications in the ED and requested to return to . This CM arranged for WC transport via [employer] ([phone]); spoke with Dave and he will arrive to the ED by 1814 to transport pt to . This CM spoke with LENKA Vieira at and gave RN report, notified her of patient returning via [employer], all questions answered. CM available for further assistance if needed. Date Signed: 05/15/2017 05:37 PM Electronically Signed By:Rhonda Sheets RN LACE BRIAN Acuity / Level of Answers: No Care: Did the patient have an inpatient admission? Comorbidities - select Answers: Dementia all that apply Other Notes: Traumatic Brain Injury # of Emergency department Answers: 1-2 visits in the last 6 months Social determinants Answers: Mental health diagnosis (anxiety, depression, pers onality disorders, etc.) Score: 8 Date Signed: 05/15/2017 05:38 PM Electronically Signed By:Rhonda Sheets RN Intervention Information Intervention Type:Transportation Date of Service:05/15/2017 05:39 PM Patient Type:Emergency Room Staff Member:LENKA Sheets [place] Hours:0.25 Discipline:Steam [employer] Control Room Operator Severity: Comment:Called [place] ([phone])na. Arranged for wheelchair transpo rt back to [facility]. Intervention Type:Post Acute Communication Date of Service:05/15/2017 05:39 PM Patient Type:Emergency Room Staff Member:LENKA Sheets [place] Hours:0.25 Discipline:Steam [employer] Control Room Operator Severity: Comment:Spoke with Isha OG at [facility], gave RN report and notification that pt was returning via [facility].
== END 2017-05-15 18:20 | disposition home or self-care (01) ==
LOC: EDUNIT#
DX: F20.9 Schizophrenia, unspecified (principal); F17.200 Nicotine dependence, unspecified, uncomplicated